=== PATIENT | female | born 1990 | race Caucasian/White ===

== ENCOUNTER → 2023-06-08 09:26 | Outpatient (BNVA) | payer BC, SELFPAY | PROVIDERS: Visit Provider Physician Assistant ==

== ENCOUNTER 2023-06-26 08:12 | Outpatient (AMB) | payer BC, SELFPAY ==
--- NOTE | 2023-06-26 10:35 | MHC.OFFVISWM ---
Intake VS Expanded 06/26/23 10:52 Height 5 ft 3 in Weight 229 lb 4 oz BMI 40.6 Body Fat % 43 Body Fat Mass 98.6 Fat Free Mass 130.8 Visceral Fat Rating 11 Body Water % 40.9 Body Water Mass 93.6 Basal Metabolic Rate/Score 1,842 Intake Visit Reasons: TV [employer] BMI 40.6 Allergies No Known Allergies Allergy (Verified 06/26/23 10:35) Medication List - Last Reconciled 06/26/23 by Andrea Souza MD albuterol sulfate 90 mcg/actuation 2 puffs inhalation Q6H PRN atomoxetine 25 mg PO QAM bupropion HCl 300 mg PO QAM escitalopram oxalate (Lexapro) 20 mg PO DAILY halobetasol propionate 0.05% topical hydrocortisone 2.5% appl topical HPI TV [employer] BMI 40.6 HPI Details Start time: 10.30am, End time: 11.23am ?I spent 48 minutes speaking with the patient on the phone plus an additional 5 minutes reviewing and updating records for a total of 53 minutes HPI Comments History of Present Illness Details Previous weight loss efforts: Keto diet, Weight Watchers, [place] protein, calorie counting, Exercise, RD, My Fitness pal Wakes up: 7am, Sleeps: 9pm Breakfast: skips Lunch: 12pm (apple with peanut butter, leftover, sandwich) Dinner: 6pm (pasta with meat sauce, chicken) Snacks: 10am (cookies, string cheese, granola), 4pm (apple with peanut butter, candy), 8pm (ice cream, popsicles) Exercise: Gym membership. Has treadmill or bike Fluids: Coffee: 1 cup/day (cream and sugar), tea: none, soda:coke zero, juice: at times, ETOH: none PFSH Medical History (Updated 06/26/23 @ 10:45 by Andrea Souza MD) Endometriosis Psoriasis Hyperlipidemia Asthma ADHD GERD (gastroesophageal reflux disease) Anxiety Depression Morbid obesity Surgical History (Updated 06/08/23 @ 09:57 by Katia Joseph CMA) Hx of colonoscopy Hx of wisdom tooth extraction Hx of ovarian cystectomy Family History (Updated 06/08/23 @ 09:58 by Katia Joseph CMA) Mother Obesity Father Hypertension Asthma Daughter No problems noted. Assessment & Plan Assessment & Plan (1) Morbid obesity: Code(s): E66.01 - Morbid (severe) obesity due to excess calories Plan: 1.? Plan for lap sleeve gastrectomy. If diaphragmatic or ventral hernias are present at time of surgery, these will be repaired laparoscopically as well. Risks and complications were discussed in detail including possible conversion to an open procedure, anastomotic leak, bleeding requiring transfusion, small bowel obstruction, , DVT and pulmonary embolism, cardiac, or pulmonary complications, as custodial complications such as anastomotic ulcer, insufficient weight loss and vitamin deficiencies. I emphasized the importance of close follow-up, adherence to instructions and good communication. 2. Nutritional counseling. Start with 2 CELEBRATE REBUILD protein (buy at [facility] [employer] [facility]) shakes (ONE scoop EACH in 8oz low fat unsweetened almond milk each) at 8am-10am and 11am-1pm, 1 protein bar (CELEBRATE protein bars, buy at [facility] [employer] [facility]) at 2pm-4pm, dinner at 5pm (8 forks of protein and 8 forks of salad/vegetables) AND one more protein bar after dinner at 7pm-9pm. So you do 2 protein shakes, 2 protein bars and one meal per day. Meal to include lean meat (beef, fish, pork, turkey, chicken), or japanese yogurt, or egg whites, or beans with a salad with olive oil and fruits (berries, pears, apples, kiwi). Avoid salt, breads, potatoes, rice, pasta, desserts. 3. Each shake would be drunk slowly, like coffee in a period of 2 hours. You may add your coffee into your shakes, if flavors match. 4. Cut each bar in 4 pieces and eat each piece in 30min ?to make each bar last 2 hours. 5. I emphasized the importance of measuring accurately the food portion and measure it when serving the food in plate 6. The meal portions include 8 full-size forks of meat and 8 full-size forks of salad. You always eat the meat portion but you can replace up to 4 forks for salad/vegetables with rice, potatoes or pasta, or a fruit ?if you like. The less you do it the better weight loss will be. 7. One full-size fork is what it can be scooped on the fork without falling aside and not what can be bit with the fork. Use regular forks like those you find in a typical restaurant. 8.? Please send me weight measurements as soon as possible and then once a week. Always include your diet and exercise plan. 9. Start treadmill with an incline of 4.0 and speed of 3.0. Increase incline by 1 every 3 min to a max incline of 10.0, stay 3min at 10.0 and then return to 4.0 and repeat same steps until calorie goal is met. Goal is to burn 2000 calories per week on exercise, which means either 300 calories daily, or 400 calories 5 days per week, or 500 calories 4 days per week, or 650 calories 3 days per week. 10. Alternatively start stationary bike at a resistance level of 4.0 Increase level by 1.0 every 3 min to a max level of 10.0. Stay at this level for 3 min and then return to level 4.0 and repeat same steps until 300 calories are burned. Velocity target is 12mph and heart rate is 145 bpm. Goal is to burn 2000 calories per week on exercise 11.?It is important of avoiding and for at least 18 months postoperatively and has been discussed at the infosession. 12. Goal is to lose at least 1.5-2lbs per week 13. Goal to lose 10% of your weight before surgery, which is about 23lbs. Ultimate weight goal: 206lbs before surgery 14. Please follow the diet plan exactly without any change. If you don't like something about the plan or you feel hungry you need to communicate with me so I can help you revise the plan. You should not change the plan yourself. Orders: Orders Complete Blood Count Auto Diff Today E66.01 - Morbid (severe) obesity due to excess calories, E78.5 - Hyperlipidemia, unspecified, J45.909 - Unspecified asthma, uncomplicated, K21.9 - Gastro-esophageal reflux disease without esophagitis, K50.90 - Crohn's disease, unspecified, without complications, N80.9 - Endometriosis, unspecified Lipid Panel Today E66.01 - Morbid (severe) obesity due to excess calories, E78.5 - Hyperlipidemia, unspecified, J45.909 - Unspecified asthma, uncomplicated, K21.9 - Gastro-esophageal reflux disease without esophagitis, K50.90 - Crohn's disease, unspecified, without complications, N80.9 - Endometriosis, unspecified IRON PROFILE Today E66.01 - Morbid (severe) obesity due to excess calories, E78.5 - Hyperlipidemia, unspecified, J45.909 - Unspecified asthma, uncomplicated, K21.9 - Gastro-esophageal reflux disease without esophagitis, K50.90 - Crohn's disease, unspecified, without complications, N80.9 - Endometriosis, unspecified Vitamin B12 and Folate Today E66.01 - Morbid (severe) obesity due to excess calories, E78.5 - Hyperlipidemia, unspecified, J45.909 - Unspecified asthma, uncomplicated, K21.9 - Gastro-esophageal reflux disease without esophagitis, K50.90 - Crohn's disease, unspecified, without complications, N80.9 - Endometriosis, unspecified Zinc Today E66.01 - Morbid (severe) obesity due to excess calories, E78.5 - Hyperlipidemia, unspecified, J45.909 - Unspecified asthma, uncomplicated, K21.9 - Gastro-esophageal reflux disease without esophagitis, K50.90 - Crohn's disease, unspecified, without complications, N80.9 - Endometriosis, unspecified C Reactive Protein Today E66.01 - Morbid (severe) obesity due to excess calories, E78.5 - Hyperlipidemia, unspecified, J45.909 - Unspecified asthma, uncomplicated, K21.9 - Gastro-esophageal reflux disease without esophagitis, K50.90 - Crohn's disease, unspecified, without complications, N80.9 - Endometriosis, unspecified Vitamin A Today E66.01 - Morbid (severe) obesity due to excess calories, E78.5 - Hyperlipidemia, unspecified, J45.909 - Unspecified asthma, uncomplicated, K21.9 - Gastro-esophageal reflux disease without esophagitis, K50.90 - Crohn's disease, unspecified, without complications, N80.9 - Endometriosis, unspecified Ferritin Today E66.01 - Morbid (severe) obesity due to excess calories, E78.5 - Hyperlipidemia, unspecified, J45.909 - Unspecified asthma, uncomplicated, K21.9 - Gastro-esophageal reflux disease without esophagitis, K50.90 - Crohn's disease, unspecified, without complications, N80.9 - Endometriosis, unspecified Vitamin D 25-OH Total Today E66.01 - Morbid (severe) obesity due to excess calories, E78.5 - Hyperlipidemia, unspecified, J45.909 - Unspecified asthma, uncomplicated, K21.9 - Gastro-esophageal reflux disease without esophagitis, K50.90 - Crohn's disease, unspecified, without complications, N80.9 - Endometriosis, unspecified XR chest 2V Today E66.01 - Morbid (severe) obesity due to excess calories, E78.5 - Hyperlipidemia, unspecified, J45.909 - Unspecified asthma, uncomplicated, K21.9 - Gastro-esophageal reflux disease without esophagitis, K50.90 - Crohn's disease, unspecified, without complications, N80.9 - Endometriosis, unspecified Insulin Today E66.01 - Morbid (severe) obesity due to excess calories, E78.5 - Hyperlipidemia, unspecified, J45.909 - Unspecified asthma, uncomplicated, K21.9 - Gastro-esophageal reflux disease without esophagitis, K50.90 - Crohn's disease, unspecified, without complications, N80.9 - Endometriosis, unspecified Hemoglobin A1c Today E66.01 - Morbid (severe) obesity due to excess calories, E78.5 - Hyperlipidemia, unspecified, J45.909 - Unspecified asthma, uncomplicated, K21.9 - Gastro-esophageal reflux disease without esophagitis, K50.90 - Crohn's disease, unspecified, without complications, N80.9 - Endometriosis, unspecified H Pylori Breath Test Today E66.01 - Morbid (severe) obesity due to excess calories, E78.5 - Hyperlipidemia, unspecified, J45.909 - Unspecified asthma, uncomplicated, K21.9 - Gastro-esophageal reflux disease without esophagitis, K50.90 - Crohn's disease, unspecified, without complications, N80.9 - Endometriosis, unspecified Comprehensive Met. Panel Today E66.01 - Morbid (severe) obesity due to excess calories, E78.5 - Hyperlipidemia, unspecified, J45.909 - Unspecified asthma, uncomplicated, K21.9 - Gastro-esophageal reflux disease without esophagitis, K50.90 - Crohn's disease, unspecified, without complications, N80.9 - Endometriosis, unspecified Vitamin B1 Today E66.01 - Morbid (severe) obesity due to excess calories, E78.5 - Hyperlipidemia, unspecified, J45.909 - Unspecified asthma, uncomplicated, K21.9 - Gastro-esophageal reflux disease without esophagitis, K50.90 - Crohn's disease, unspecified, without complications, N80.9 - Endometriosis, unspecified TSH reflex Free T4 Today E66.01 - Morbid (severe) obesity due to excess calories, E78.5 - Hyperlipidemia, unspecified, J45.909 - Unspecified asthma, uncomplicated, K21.9 - Gastro-esophageal reflux disease without esophagitis, K50.90 - Crohn's disease, unspecified, without complications, N80.9 - Endometriosis, unspecified US abdomen comp w elastography Today E66.01 - Morbid (severe) obesity due to excess calories, E78.5 - Hyperlipidemia, unspecified, J45.909 - Unspecified asthma, uncomplicated, K21.9 - Gastro-esophageal reflux disease without esophagitis, K50.90 - Crohn's disease, unspecified, without complications, N80.9 - Endometriosis, unspecified ECG 12 lead EKG Today E66.01 - Morbid (severe) obesity due to excess calories, E78.5 - Hyperlipidemia, unspecified, J45.909 - Unspecified asthma, uncomplicated, K21.9 - Gastro-esophageal reflux disease without esophagitis, K50.90 - Crohn's disease, unspecified, without complications, N80.9 - Endometriosis, unspecified FL upper GI w air Today E66.01 - Morbid (severe) obesity due to excess calories, E78.5 - Hyperlipidemia, unspecified, J45.909 - Unspecified asthma, uncomplicated, K21.9 - Gastro-esophageal reflux disease without esophagitis, K50.90 - Crohn's disease, unspecified, without complications, N80.9 - Endometriosis, unspecified Referrals Behavioral Health Referral E66.01 - Morbid (severe) obesity due to excess calories, E78.5 - Hyperlipidemia, unspecified, J45.909 - Unspecified asthma, uncomplicated, K21.9 - Gastro-esophageal reflux disease without esophagitis, K50.90 - Crohn's disease, unspecified, without complications, N80.9 - Endometriosis, unspecified Nutrition/Dietitian Referral E66.01 - Morbid (severe) obesity due to excess calories, E78.5 - Hyperlipidemia, unspecified, J45.909 - Unspecified asthma, uncomplicated, K21.9 - Gastro-esophageal reflux disease without esophagitis, K50.90 - Crohn's disease, unspecified, without complications, N80.9 - Endometriosis, unspecified Telehealth Telehealth Location of provider rendering services: practice address Location of patient: address on file Patient Identification confirmed using: Name, : Yes Telehealth method: voice only Patient verbally consented to treatment: Yes Patient verbally consented to billing insurance company: Yes Patient informed of any privacy concerns related to visit: Yes Minutes spent on Phone/Video with Pt.: 53 Coding Level of Care Code Tele New Pt Level 4 (81671) Diagnoses Morbid obesity E66.01 Time Spent (min) 53
[2023-06-26 10:52] VITALS: BMI 40.6
== END 2023-06-26 11:25 | disposition home or self-care (01) ==
LOC: HO.HBS 08:12
PROVIDERS: Visit Provider Surgery
DX: E66.01 Morbid (severe) obesity due to excess calories (principal); Z68.41 Body mass index [BMI] 40.0-44.9, adult
CPT/HCPCS: 99443

== ENCOUNTER → 2023-06-26 08:12 | Outpatient (BNVA) | payer BC, SELFPAY | PROVIDERS: Visit Provider Surgery ==

== ENCOUNTER 2023-06-29 09:53 | Outpatient (REF) | payer BC, SELFPAY ==
--- NOTE | ~2023-06-29 | XR_ITS ---
EXAMINATION: XR CHEST CLINICAL INFORMATION: Reason for Exam E66.01 - Morbid (severe) obesity due to excess calories COMPARISON: None available. TECHNIQUE: 2 views of the chest were obtained. FINDINGS: No significant abnormality is noted involving the heart, lungs, mediastinum, bony thorax or soft tissues. XR/XR chest 2V IMPRESSION: Unremarkable examination.
--- NOTE | 2023-06-29 10:04 | ECG_ITS ---
Test Reason : E66.01 Blood Pressure : / mmHG Vent. Rate : 079 BPM Atrial Rate : 079 BPM P-R Int : 126 ms QRS Dur : 080 ms QT Int : 406 ms P-R-T Axes : 031 023 002 degrees QTc Int : 465 ms Normal sinus rhythm Low voltage QRS Nonspecific T wave abnormality Prolonged QT Abnormal ECG No previous ECGs available Referred By: Andrea Souza Electronically Signed By:ERICH RO
[2023-06-29 10:31] LABS: MANUAL DIFF FLAG NO
[2023-06-29 11:05] LABS: Basophils Percent Auto 0.5 % (0-2); Eosinophils Absolute Auto 0.3 X10*3/uL (0.0-0.4); Eosinophils Percent Auto 3.2 % (0-4); Hematocrit 39.4 % (37.0-47.0); Hemoglobin 13.5 g/dl (12.0-16.0); Imm Gran Abs Auto 0.02 X10*3/uL (0.00-0.03); Imm Gran Pct Auto 0.3 % (0.0-0.4); Lymphocytes Absolute Auto 2.3 X10*3/uL (1.2-4.9); Lymphocytes Percent Auto 28.6 % (20-40); Mean Corpuscular HGB Conc 34.3 g/dl (31.0-35.0); Mean Corpuscular Volume 84.5 fL (80.0-98.0); Mean Platelet Volume 9.1 fL (9.4-12.3); Monocytes Absolute Auto 0.3 X10*3/uL (0.1-1.2); Monocytes Percent Auto 4.2 % (2-11); Neutrophils Percent Auto 63.2 % (45-73); Platelet Count 353 X10*3/uL (160-400); Red Blood Count 4.66 X10*6/uL (4.20-5.50); Red Cell Distribution Width 12.9 % (11.0-16.0); White Blood Count 7.9 X10*3/uL (4.8-10.8)
[2023-06-29 11:11] LABS: Estimated Average Glucose 97 mg/dL
[2023-06-29 11:36] LABS: Alanine Aminotransferase 23 U/L (0-31); Albumin Level 4.1 g/dL (3.5-5.0); Alkaline Phosphatase 68 U/L (39-117); Anion Gap 10 (12-20); Aspartate Amino Transferase 17 U/L (5-31); Bilirubin Total 0.4 mg/dL (0.0-1.0); Blood Urea Nitrogen 12 mg/dL (9-16); Calcium 9.1 mg/dL (8.4-10.2); Carbon Dioxide 25 mmol/L (22-29); Chloride 108 mmol/L (96-108); Cholesterol 145 mg/dL (<200); Estimated Glomerular Filt Rate > 60; Glucose Random 95 mg/dL (60-115); HDL Cholesterol 38 mg/dL (>40); Iron 63 mcg/dL (30-160); LDL Cholesterol Calculated 89 mg/dL (<100); Percent Iron Saturation 21 % (15-50); Potassium 3.9 mmol/L (3.3-5.1); Sodium 139 mmol/L (135-145); Total Iron Binding Capacity 299 mcg/dL (228-428); Total Protein 7.6 g/dL (6.5-8.0); Triglycerides 94 mg/dL (<150); Unsaturated Iron Binding 236 ug/dL
[2023-06-29 11:53] LABS: Ferritin 23 ng/mL (10-122); Insulin 12 uU/mL (2-29); TSH reflex Free T4 0.54 uIU/mL (0.32-4.0); Vitamin D 25-OH Total 26.7 ng/mL (>30)
[2023-06-29 12:13] LABS: Folate 13.2 ng/mL (> or = 4.0); Vitamin B12 595 pg/mL (200-900)
[2023-07-01 16:59] LABS: Zinc 63 mcg/dL (60-130)
[2023-07-02 03:03] LABS: Vitamin A 43 mcg/dL (38-98)
[2023-07-02 16:43] LABS: Vitamin B1 12 nmol/L (8-30)
== END 2023-06-29 09:54 | disposition home or self-care (01) ==
LOC: HO.XRAY 09:53
PROVIDERS: Visit Provider Surgery
DX: E66.01 Morbid (severe) obesity due to excess calories (principal); K21.9 Gastro-esophageal reflux disease without esophagitis; J45.909 Unspecified asthma, uncomplicated; E78.5 Hyperlipidemia, unspecified; K50.90 Crohn's disease, unspecified, without complications; N80.9 Endometriosis, unspecified
CPT/HCPCS: 36415; 71046; 80053; 80061; 82306; 82607; 82728; 82746; 83036; 83525; 83540; 84425; 84443; 84590; 84630; 85025; 86140; 93005

== ENCOUNTER → 2023-06-29 10:04 | Outpatient (BNV) | payer BC, SELFPAY | PROVIDERS: Visit Provider Internal Medicine | DX: I45.81 Long QT syndrome (principal) | CPT/HCPCS: 93010 ==

== ENCOUNTER 2023-07-06 13:14 | Outpatient (AMB) | payer BC, SELFPAY ==
--- NOTE | 2023-07-06 13:01 | A.OFFVIS_ITS ---
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 She has no questions or concerns . Exercise: walking treadmill 5 days per week and following a plan from Dr. Harley MOCTEZUMA online classes: completed , scored well and reviewed. Dietary counseling reduction Who buys your food self and spouse Who prepares/cooks your food self and spouse Meal frequency regular: lunch (something easy - apple w PB), dinner (pasta ) and snacks and never: breakfast Lifestyle Eating out 1-3 times/week Family support Yes Food frequency Fruit: daily, Vegetables: daily, Grains/pasta/breads/cereal (carbs): daily, Meats/poultry/fish (protein): daily, Meat substitutes/nuts/seeds/legumes: daily, Water: daily, Soda: daily (regular coke) and Coffee: daily (cream and sugar ) Diagnosis Nutrition problem #1 overweight/obesity As related to (etiology) #1 excess energy intake and physical inactivity As evidenced by (sign/symptom) #1 high BMI Monitoring/Goals Nutrition problem monitoring total energy intake, level of knowledge/skill, total PRO intake and weight Outcome progress progressing Learning/Education Readiness to learn good Stages of change action Educational materials provided Yes Most Recent Diabetes Results: Cholesterol 145 mg/dL (<200) 06/29/23 HDL Cholesterol 38 mg/dL (>40) L 06/29/23 Triglycerides 94 mg/dL (<150) 06/29/23 Creatinine 0.77 mg/dL (0.5-1.4) 06/29/23 Blood Urea Nitrogen 12 mg/dL (9-16) 06/29/23 Sodium 139 mmol/L (135-145) 06/29/23 Potassium 3.9 mmol/L (3.3-5.1) 06/29/23 Chloride 108 mmol/L (96-108) 06/29/23 Carbon Dioxide 25 mmol/L (22-29) 06/29/23 Calcium 9.1 mg/dL (8.4-10.2) 06/29/23 AST 17 U/L (5-31) 06/29/23 ALT 23 U/L (0-31) 06/29/23 Total Protein 7.6 g/dL (6.5-8.0) 06/29/23 Albumin 4.1 g/dL (3.5-5.0) 06/29/23 PFSH Medical History (Updated 07/03/23 @ 17:00 by nAdrea Souza MD) Endometriosis Psoriasis Hyperlipidemia Asthma ADHD GERD (gastroesophageal reflux disease) Anxiety Depression Morbid obesity Surgical History (Updated 06/08/23 @ 09:57 by Katia Joseph CMA) Hx of colonoscopy Hx of wisdom tooth extraction Hx of ovarian cystectomy Family History (Updated 06/08/23 @ 09:58 by Katia Joseph CMA) Mother Obesity Father Hypertension Asthma Daughter No problems noted. Assessment & Plan Assessment & Plan (1) Obesity (BMI 30-39.9): Code(s): E66.9 - Obesity, unspecified Plan Patient is cleared from a nutrition standpoint for bariatric surgery. Educational requirements have been completed. Reviewed vitamin supplementation and commitment to protein shake for several months post surgery. Encouraged communication with office as needed Telehealth Telehealth Location of provider rendering services: practice address Location of patient: address on file Patient Identification confirmed using: Name, : Yes Telehealth method: video Patient verbally consented to treatment: Yes Patient verbally consented to billing insurance company: Yes Patient informed of any privacy concerns related to visit: Yes Minutes spent on Phone/Video with Pt.: 30 Coding Level of Care Code Nutr Indiv Intake (22734) Diagnoses Obesity (BMI 30-39.9) E66.9 Time Spent (min) 30
[2023-07-06 13:04] VITALS: BMI 38.3
== END 2023-07-06 13:25 | disposition home or self-care (01) ==
LOC: HO.HBS 13:14
PROVIDERS: Visit Provider Dietitian, Registered
DX: E66.9 Obesity, unspecified (principal)

== ENCOUNTER → 2023-07-06 13:14 | Outpatient (BNVA) | payer BC, SELFPAY | PROVIDERS: Visit Provider Dietitian, Registered | DX: E66.9 Obesity, unspecified (principal); Z68.38 Body mass index [BMI] 38.0-38.9, adult; Z71.3 Dietary counseling and surveillance | CPT/HCPCS: 97802 ==

== ENCOUNTER → 2023-07-14 10:29 | Outpatient (REF) | payer BC, SELFPAY ==
--- NOTE | 2023-07-14 10:31 | CA_ITS ---
Acquisition Time: 2023-07-14 10:41:46 Total Exercise Time: 00:07:06 Test Indications: ABNORMAL EKG Medications: Protocol: JACQUI Max HR: 162 BPM 87% of Pred: 186 BPM Max BP: 138/080 mmHG Max Work Load: 8.7 METS Exercise stress test exercise 7 min 6 sec of Jacqui protocol achieving 87% MPHR 8.7 METs, without anginal symptoms, without arrhythmais, with normotensive response to exercise, without EKG changes. Test reviewed with Dr. Morse Referred By: Andrea Souza Overread By: Valeria Contreras
== END ==
LOC: HO.CARD 10:29
PROVIDERS: Visit Provider Surgery
DX: R94.31 Abnormal electrocardiogram [ECG] [EKG] (principal)
CPT/HCPCS: 93017

== ENCOUNTER → 2023-07-14 10:31 | Outpatient (BNV) | payer BC, SELFPAY | PROVIDERS: Visit Provider Nurse Practitioner | DX: R94.31 Abnormal electrocardiogram [ECG] [EKG] (principal) | CPT/HCPCS: 93016; 93018 ==

== ENCOUNTER 2023-07-17 08:56 | Outpatient (REF) | payer BC, SELFPAY ==
--- NOTE | ~2023-07-17 | US_ITS ---
EXAMINATION: US COMPLETE ABDOMEN WITH LIVER ELASTOGRAPHY CLINICAL INFORMATION: Morbid obesity. COMPARISON: None available. TECHNIQUE: Real-time imaging of the abdominal viscera. Noninvasive ultrasound liver fibrosis assessment is performed using Nick ElastPQ point quantification shear wave elastography (2D-SWE) with a C5-2 MHz transducer. Multiple elastography samples are obtained. FINDINGS: PANCREAS: Head and body appear unremarkable. Tail not visualized. ABDOMINAL AORTA: The proximal, middle, and distal aortic segments appear unremarkable in caliber. INFERIOR VENA CAVA: Visualized portions appear unremarkable. LIVER: The liver demonstrates normal size, contour and echogenicity. No focal lesion or intrahepatic biliary duct dilatation. The right lobe measures 17.2 cm in length. The left lobe measures 10.9 cm in length. Portal flow is towards the liver (hepatopetal). Shear wave liver elastography median stiffness is 1.19 m/s (reference: normal median stiffness is 1.3 m/s or less). IQR/median stiffness to assess sampling precision is 0.15 (reference: good quality data set is IQR/median stiffness of 0.15 or less). GALLBLADDER: The gallbladder is physiologically distended without evidence of stones, sludge, polyps, wall thickening or pericholecystic fluid. Technologist reports negative sonographic Cooper's sign. COMMON BILE DUCT: Normal in caliber measuring 0.5 cm in diameter. RIGHT KIDNEY: No hydronephrosis. No renal calculi or focal parenchymal lesion identified. The kidney measures 11.3 cm in maximum dimension. LEFT KIDNEY: No hydronephrosis. No renal calculi or focal parenchymal lesion identified. The kidney measures 12.3 cm in maximum dimension. SPLEEN: The spleen measures 11.3 cm in maximum dimension. FREE FLUID: None. US/US abdomen comp w elastography IMPRESSION: Liver elastography: Measurements are consistent with a high probability of normal liver stiffness. REFERENCE: Society of Radiologists in Ultrasound Liver Stiffness Thresholds (2020): LIVER STIFFNESS THRESHOLDS: *Liver Stiffness equal or less than 1.3 m/s: High probability of being normal. *Liver Stiffness less than 1.7 m/s: In the absence of other known clinical signs, rules out compensated advanced chronic liver disease. *Liver Stiffness 1.7-2.1 m/s: Suggestive of compensated advanced chronic liver disease but need further test for confirmation. *Liver Stiffness over 2.1 m/s: Rules in compensated advanced chronic liver disease. *Liver Stiffness over 2.4 m/s: Suggestive of clinically significant portal hypertension. QUALITY OF DATA SET: *IQR/Median value equal or less than 0.15 implies a quality data set. *IQR/Median value over 0.15 implies a poor quality data set. SIGNIFICANT CHANGE FROM PRIOR EXAM: Significant change if liver stiffness measurement is 10% or greater from prior exam. OTHER CONSIDERATIONS: The stage of liver fibrosis may be overestimated in the setting of acute hepatitis, liver inflammation, elevated liver function tests, hepatic vascular congestion, obstructive cholestasis, non-fasting state, and infiltrative diseases such as amyloidosis and lymphoma. In some patients with NAFLD, the liver stiffness thresholds for compensated advanced chronic liver disease may be lower. In causes other than viral hepatitis and NAFLD, liver stiffness thresholds are not well established.
[2023-07-21 12:42] LABS: H Pylori Breath Test Negative (Negative)
== END 2023-07-17 08:57 | disposition home or self-care (01) ==
LOC: HO.US 08:56
PROVIDERS: Visit Provider Surgery
DX: E66.01 Morbid (severe) obesity due to excess calories (principal); K21.9 Gastro-esophageal reflux disease without esophagitis; J45.909 Unspecified asthma, uncomplicated; E78.5 Hyperlipidemia, unspecified; K50.90 Crohn's disease, unspecified, without complications; N80.9 Endometriosis, unspecified
CPT/HCPCS: 76700; 76981; 83013; 99211

== ENCOUNTER 2023-07-20 08:05 | Outpatient (AMB) | payer BC, SELFPAY ==
--- NOTE | 2023-07-20 10:23 | MHC.OFFVISWM ---
Intake VS Expanded 07/20/23 10:28 Height 5 ft 3 in Weight 208 lb 8 oz BMI 36.9 Body Fat % 46.8 Body Fat Mass 97.7 Fat Free Mass 111.2 Visceral Fat Rating 19 Body Water % 36.5 Body Water Mass 76.2 Basal Metabolic Rate/Score 1,460 Intake Visit Reasons: TV Follow Up SWL - 1ST Allergies No Known Allergies Allergy (Verified 06/26/23 10:35) HPI TV Follow Up SWL - 1ST HPI Details Start time: 10.12am, End time: 10.32am ?I spent 15 minutes speaking with the patient on the phone plus an additional 5 minutes reviewing and updating records for a total of 20 minutes HPI Comments History of Present Illness Details Overall weight loss: 20.6lbs, or 9% TBWL Is doing 2 Celebrate Rebuild protein shakes (1 scoop in almond milk), 2 Celebrate protein bars and one meal (8 forks of protein and 8 forks of salad or vegetables) Exercise: is doing treadmill for 5 days week for 400 calories (speed: 2.2mph, incline 4-10) PFSH Medical History (Updated 07/20/23 @ 10:31 by Andrea Souza MD) Endometriosis Psoriasis Hyperlipidemia Asthma ADHD GERD (gastroesophageal reflux disease) Anxiety Depression Morbid obesity Surgical History (Updated 06/08/23 @ 09:57 by Katia Joseph CMA) Hx of colonoscopy Hx of wisdom tooth extraction Hx of ovarian cystectomy Family History (Updated 06/08/23 @ 09:58 by Katia Joseph CMA) Mother Obesity Father Hypertension Asthma Daughter No problems noted. Assessment & Plan Assessment & Plan (1) Obesity: Code(s): E66.9 - Obesity, unspecified Qualifiers: Obesity type: due to excess calories Obesity classification: adult class 2 (BMI 35 - 39.9) Serious obesity comorbidity presence: with serious comorbidity Body mass index: BMI 36.0-36.9 Qualified Code(s): E66.01 - Morbid (severe) obesity due to excess calories; Z68.36 - Body mass index [BMI] 36.0-36.9, adult Plan: 1. Plan for lap sleeve gastrectomy including upper GI endoscopy. All tests has been completed and reviewed and the patient is cleared for the surgery. ?If diaphragmatic or ventral hernias are present at time of surgery, these will be repaired laparoscopically as well. Risks and complications were discussed in detail including possible conversion to an open procedure, anastomotic leak, bleeding requiring transfusion, small bowel obstruction, , DVT and pulmonary embolism, cardiac, or pulmonary complications, as terminal worker complications such as anastomotic ulcer, insufficient weight loss and vitamin deficiencies. I emphasized the importance of close follow-up, adherence to instructions and good communication. So far she has proven to be an excellent communicator and very compliant with all our directions accomplishing a great weight loss. I believe that she is an excellent candidate and she is ready. 2. Continue same nutritional plan of 2 Celebrate Rebuild protein shakes (1 scoop in almond milk), 2 Celebrate protein bars and one meal (8 forks of protein and 8 forks of salad or vegetables) 3. Exercise: continue treadmill for 5 days week for 440 calories (speed: 2.2mph, increase incline to 6-12) 4. Continue to send me weight measurements weekly on Fridays Telehealth Telehealth Location of provider rendering services: practice address Location of patient: address on file Patient Identification confirmed using: Name, : Yes Telehealth method: voice only Patient verbally consented to treatment: Yes Patient verbally consented to billing insurance company: Yes Patient informed of any privacy concerns related to visit: Yes Minutes spent on Phone/Video with Pt.: 20 Coding Level of Care Code Tele Est Pt Level 3 (10684) Diagnoses Class 2 severe obesity due to excess calories with serious comorbidity and body mass index (BMI) of 36.0 to 36.9 in adult E66.01; Z68.36 Obesity type: due to excess calories Obesity classification: adult class 2 (BMI 35 - 39.9) Serious obesity comorbidity presence: with serious comorbidity Body mass index: BMI 36.0-36.9 Time Spent (min) 20
[2023-07-20 10:28] VITALS: BMI 36.9
== END 2023-07-20 10:33 | disposition home or self-care (01) ==
LOC: HO.HBS 08:06
PROVIDERS: Visit Provider Surgery
DX: E66.09 Other obesity due to excess calories (principal); Z68.36 Body mass index [BMI] 36.0-36.9, adult
CPT/HCPCS: 99442

== ENCOUNTER → 2023-07-20 08:05 | Outpatient (BNVA) | payer BC, SELFPAY | PROVIDERS: Visit Provider Surgery ==

== ENCOUNTER 2023-07-20 14:47 | Outpatient (AMB) | payer BC, SELFPAY ==
--- NOTE | 2023-07-20 13:12 | A.OFFWM_ITS ---
Intake Intake Visit Reasons: VIDEO BH Intake Allergies No Known Allergies Allergy (Verified 06/26/23 10:35) [facility] Medical History (Updated 07/20/23 @ 10:31 by Andrea Souza MD) Endometriosis Psoriasis Hyperlipidemia Asthma ADHD GERD (gastroesophageal reflux disease) Anxiety Depression Morbid obesity Surgical History (Updated 06/08/23 @ 09:57 by Katia Joseph CMA) Hx of colonoscopy Hx of wisdom tooth extraction Hx of ovarian cystectomy Family History (Updated 06/08/23 @ 09:58 by Katia Joseph CMA) Mother Obesity Father Hypertension Asthma Daughter No problems noted. Behavioral Health Assessment Weight Management Therapy Therapy Notes Details Pt is looking to have weight loss surgery to help improve her health and quality of life. She reported seeing a therapist Mindy Coreas for ADHD, anxiety, and depression, and then Anna Rodriguez through [facility] for medication management. She has no history of problems with drugs or alcohol. Pt has no history of inpatient psychiatric admissions, and does have a hx of cutting as a teenager. Presenting Concerns Referral Source provider Reason for referral weight loss surgery evaluation Precipitating Event obesity Living Situation Current Living Situation Own At risk of losing current housing? No Satisfied with current living situation? Yes Comments Pt lives with her and their one year old daughter. Food/Weight/Diet Expectations of change weight loss and maintenance History/Relationship with food Pt stated that there was some emotional eating and eating as a celebration. Also would skip breakfast and would eat a bunch of snacks starting around noon with no actual meals. She reported that she would often eat and was unable to stop eating at least once a week. . she would then be painfully full. History/Relationship with weight Pt stated that she has been overweight since childhood and was often bullied because of it. History/Relationship with dieting Pt has been on numerous different diets and also tried medications. WW, Juicing, Atkins, Keto, Ozempic, has been able to loose 30lbs at most. Binge Eating Do you frequently eat large amounts of food in short periods of time, not feeling physically hungry? Yes Do you feel out of control when you eat a large amount of food in a short period of time? No Do you eat large amounts of food rapidly and typically alone? Yes Night Eating Do you wake up at least once during the night to eat? No If you wake up in the night, do you find that it is necessary to eat something in order to fall back asleep? No Do you have little or no appetite in the morning and feel very hungry in the evening, often overeating between dinner and when you go to bed? Yes Social History Family history and relationship Pt was raised by her parents and is an only child. She grew up in [place]. Parental/Familial caretaker resort obligations 1 year old daughter Developmental history and status no issues Social support partner (), mother, mother in law, father, and friends Legal Involvement and History Current or historical involvement with the legal system? 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 No Interested in further educational program? 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 No Meaningful activities cooking, spending time with her family, working out, hiking. Financial Situation Describe current financial situation Comfortable Financial assistance? None Service Service? No Mental Health and Addiction Treatment Current/Past substance abuse? No Current/Past addictive behavior concerns? No Medical and Physical Health Summary Physical exam in the last year? Yes Pain Screening Current pain? No Pain in the last few months? No Medications Is the patient compliant with medications? Yes Does the patient have Woo Guardian in place? Not applicable Does the patient use complimentary health approaches? No Trauma/Abuse History History of trauma? Yes Questionnaires PHQ-9 Over the last 2 weeks, how often have you been bothered by any of the following problems? 1. Little interest or pleasure in doing things: not at all 2. Feeling down, depressed, or hopeless: several days 3. Trouble falling or staying asleep, or sleeping too much: not at all 4. Feeling tired or having little energy: nearly every day 5. Poor appetite or overeating: several days 6. Feeling bad about yourself - or that you are a failure or have let yourself or your family down: not at all 7. Trouble concentrating on things, such as reading the newspaper or watching television: not at all 8. Moving or speaking so slowly that other people could have noticed. Or the opposite - being so fidgety or restless that you have been moving around a lot more than usual: not at all 9. Thoughts that you would be better off or of hurting yourself in some way: not at all Total score: 5 Source: Developed by Drs. Kishan Kline, Sonja Masterson, Timi Juarez and colleagues, with an educational clifton from [employer]. Binge Eating Scale Group 1 A. I don't feel self-conscious about my wt. or body size when I'm with others. B. I feel concerned about how I look to others, but it normally does not make me fell disappointed with myself C. I do get self-conscious about my appearance and wt. which makes me feel disappointed in myself. D. I feel very self-conscious about my wt. and frequently I feel intense shame and disgust for myself. I try to avoid social contacts because of my self- consciousness. Response Group 1: B Group 2 A. I don't have any difficulty eating slowly in the proper manner. B. Although I seem to gobble down foods, I don't end up feeling stuffed because of eating to much. C. At times, I tend to eat quickly and then, I feel uncomfortably full afterwards. D. I have the habit of bolting down my food, without really chewing it. When this happens I usually feel uncomfortably stuffed because I've eaten to much. Response Group 2: C Group 3 A. I feel capable to control my eating urges when I want to. B. I feel like I have failed to control my eating more than the average person. C. I feel utterly helpless when it comes to feeling in control of my eating urges. D. Because I feel so helpless about controlling my eating I have become very desperate about trying to get control. Response Group 3: A Group 4 A. I don't have the habit of eating when I'm bored. B. I sometimes eat when I'm bored, but often I'm able to get busy and get my mind off food. C. I have a regular habit of eating when I'm bored, but occasionally, I can use some other activity to get my mind off eating. D. I have a strong habit of eating when I'm bored. Nothing seems to help me breath the habit. Response Group 4: B Group 5 A. I'm usually physically hungry when I eat something. B. Occasionally, I eat something on impulse even though I really am not hungry. C. I have the regular habit of eating foods, that I might not really enjoy, to satisfy a hungry feeling even though physically, I don't need the food. D. Although I'm not physically hungry, I get a hungry feeling in my mouth that only seems to be satisfied when I eat a food, like sandwich, that fills my mouth. Sometimes, when I eat the food to satisfy my mouth hunger, I then spit the food out so I won't gain weight. Response Group 5: A Group 6 A. I don't feel any guilt or self-hate after I overeat. B. After I overeat, occasionally I feel guilt or self-hate. C. Almost all the time I experience strong guilt or self-hate after I overeat. Response Group 6: B Group 7 A. I don't lose total control of my eating when dieting even after periods when I overeat. B. Sometimes when I eat a forbidden food on a diet, I feel like I blew it and eat even more. C. Frequently, I have the habit of saying to myself, I've blown it now, why not go all the way, when I overeat on a diet. When that happens I eat more. D. I have a regular habit of starting a strict diets for myself but I break the diets by going on an eating binge. My life seems to be either a feast or famine. Response Group 7: B Group 8 A. I rarely eat so much food that I feel uncomfortably stuffed afterwards. B. Usually about once a month, I each such a quantity of food, I end up feeling very stuffed. C. I have regular periods during the month when I eat large amounts of food, either at mealtime or at snacks. D. I eat so much food that I regularly feel quite uncomfortable after eating and sometimes a bit nauseous. Response Group 8: B Group 9 A. My level of calorie intake does not go up very high or go down very low on a regular basis. B. Sometimes after I overeat, I will try to reduce my caloric intake to almost nothing to compensate for the excess calories I've eaten. C. I have a regular habit of overeating during the night. It seems that my routine is not to be hungry in the morning but overeat in the evening. D. In my adult years, I have had week-long periods where I practically starve myself. This follows periods when I overeat. It seems I live a life of either feast or famine. Response Group 9: C Group 10 A. I usually am able to stop eating when I want to. I know when enough is enough. B. Every so often, I experience a compulsion to eat which I can't seem to control. C. Frequently, I experience strong urges to eat which I seem unable to control, but at other times I can control my eating urges. D. I feel incapable of controlling urges to eat. I have a fear of not being able to stop eating voluntarily. Response Group 10: A Group 11 A. I don't have any problem stopping eating when I feel full. B. I usually can stop eating when I feel full but occasionally overeat leaving me feeling uncomfortably stuffed. C. I have a problem stopping eating once I start and usually I feel uncomfortably stuffed after I eat a meal. D. Because I have a problem not being able to stop eating when I want, I sometimes have to induce vomiting to relieve my stuffed feeling. Response Group 11: B Group 12 A. I seem to eat just as much when I'm with others, Family social gatherings as when I'm by myself. B. Sometimes, when I'm with other persons, I don't eat as much as I want to eat because I'm self-conscious about my eating. C. Frequently, I eat only a small amount of food when others are present, because I'm very embarrassed about my eating. D. I feel so ashamed about overeating that I pick times to overeat when I know no one will see me. I feel like a closet eater. Response Group 12: A Group 13 A. I eat three meals a day with only an occasional between meal snack. B. I eat 3 meals a day, but I also normally snack between meals. C. When I am snacking heavily, I get in the habit of skipping regular meals. D. There are regular periods when I seem to be continually eating, with no planned meals. Response Group 13: B Group 14 A. I don't think much about trying to control unwanted eating urges. B. At least some of the time, I feel my thoughts are pre-occupied with trying to control my eating urges. C. I feel that frequently I spend much time thinking about how much I ate or about trying not to eat anymore. D. It seems to me that most of my waking hours are pre-occupied by thoughts about eating or not eating. I feel like I'm constantly struggling not to eat. Response Group 14: A Group 15 A. I don't think about food a great deal. B. I have strong craving for food but they last only for brief periods of time. C. I have days when I can't seem to think about anything else but food. D. Most of my days seem to be pre-occupied with thoughts about food. I feel like I live to eat. Response Group 15: A Group 16 A. I usually know whether or not I'm physically hungry. I take the right portion of food to satisfy me. B. Occasionally, I feel uncertain about knowing whether or not I'm physically hungry. A these times it's hard to know how much food I should take to satisfy me. C. Even though I might know how many calories I should eat, I don't have any idea what is a normal amount of food for me. Response Group 16: C Binge Eating Score: 13 Score less than 17 Minimal Risk Score between 18-26 Moderate Risk Score between 27-46 High Risk Assessment & Plan Assessment & Plan (1) ADHD: Code(s): F90.9 - Attention-deficit hyperactivity disorder, unspecified type (2) Anxiety: Code(s): F41.9 - Anxiety disorder, unspecified (3) Depression: Code(s): F32.A - Depression, unspecified (4) Morbid obesity: Code(s): E66.01 - Morbid (severe) obesity due to excess calories Plan Patient is doing well in the program. She has numerous professional and social supports. Also in treatment for a few years now with her own mental health providers. She is cleared for surgery. Telehealth Telehealth Location of provider rendering services: practice address Location of patient: address on file Patient Identification confirmed using: Name, : Yes Telehealth method: voice only Patient verbally consented to treatment: Yes Patient verbally consented to billing insurance company: Yes Patient informed of any privacy concerns related to visit: Yes Minutes spent on Phone/Video with Pt.: 40 Coding Level of Care Code Tele Psy Diag Eval (42966) Diagnoses ADHD F90.9 Anxiety F41.9 Depression F32.A Morbid obesity E66.01 Time Spent (min) 45
== END 2023-07-20 15:07 | disposition home or self-care (01) ==
LOC: HO.HBST 14:52
PROVIDERS: Visit Provider Counselor Mental Health
DX: F90.9 Attention-deficit hyperactivity disorder, unspecified type (principal); F41.9 Anxiety disorder, unspecified; F32.A Depression, unspecified; E66.01 Morbid (severe) obesity due to excess calories
CPT/HCPCS: 90791

== ENCOUNTER 2023-07-23 11:03 | Outpatient (REF) | payer BC, SELFPAY ==
--- NOTE | ~2023-07-23 | FL_ITS ---
EXAMINATION: XR FLUOROSCOPY UPPER GI WITH AIR CLINICAL INFORMATION: Preop evaluation prior to bariatric surgery COMPARISON: None TECHNIQUE: Fluoroscopic air contrast upper GI examination was performed utilizing standard techniques with thin and thick barium and effervescent granules. Numerous spot images were obtained. FINDINGS: Lateral cine images of the oropharynx and hypopharynx demonstrate normal swallow mechanism with normal epiglottic inversion and soft palate elevation. No tracheal penetration, glottic or subglottic aspiration identified. No nasopharyngeal reflux present. Hypopharyngeal structures appear normal without evidence of mass or diverticulum. There was no significant cricopharyngeal achalasia. Dual and single contrast images of the esophagus demonstrate normal caliber, contour, and mucosal pattern. No evidence of stricture, mass, or ulcerations identified. Esophageal peristalsis was normal. No evidence of hiatus hernia identified. Gastroesophageal reflux is seen up to the thoracic inlet. Dual contrast and single contrast images of the stomach demonstrated normal contour and mucosal pattern without evidence of mass, ulceration, or other abnormality. Contrast freely passed into the gastric antrum and duodenal bulb without delay. Single and air-contrast images of the duodenal bulb demonstrate no abnormality. The duodenal sweep has a normal appearance, course, and mucosal fold appearance. No malrotation. The imaged proximal jejunum has a normal fold pattern and caliber. FLUOROSCOPY TIME: 3 minutes 41 seconds Number of Spot Images: 12 Number of Cine: 8 DOSE AREA PRODUCT: 3091 uGy-m2 (microgray-meter squared) FL/FL upper GI w air IMPRESSION: Significant gastroesophageal reflux. This procedure was performed by Ariel Kennedy PA-C, and supervised by Dr. Contreras
== END 2023-07-23 11:04 | disposition home or self-care (01) ==
LOC: HO.XRAY 11:03
PROVIDERS: Visit Provider Surgery
DX: E66.01 Morbid (severe) obesity due to excess calories (principal); K21.9 Gastro-esophageal reflux disease without esophagitis; K50.90 Crohn's disease, unspecified, without complications
CPT/HCPCS: 74246

== ENCOUNTER → 2023-07-23 11:03 | Outpatient (BNV) | payer BC, SELFPAY | PROVIDERS: Visit Provider Physician Assistant Surgical | DX: E66.01 Morbid (severe) obesity due to excess calories (principal); Z01.818 Encounter for other preprocedural examination | CPT/HCPCS: 74246 ==

== ENCOUNTER 2023-08-14 07:09 | Outpatient (REF) | payer BC, SELFPAY ==
[2023-08-14 07:35] LABS: MANUAL DIFF FLAG NO
[2023-08-14 07:37] LABS: Basophils Percent Auto 0.3 % (0-2); Eosinophils Absolute Auto 0.9 X10*3/uL (0.0-0.4); Eosinophils Percent Auto 9.5 % (0-4); Hematocrit 39.5 % (37.0-47.0); Hemoglobin 13.4 g/dl (12.0-16.0); Imm Gran Abs Auto 0.02 X10*3/uL (0.00-0.03); Imm Gran Pct Auto 0.2 % (0.0-0.4); Lymphocytes Absolute Auto 2.3 X10*3/uL (1.2-4.9); Lymphocytes Percent Auto 24.2 % (20-40); Mean Corpuscular HGB Conc 33.9 g/dl (31.0-35.0); Mean Corpuscular Hemoglobin 29.5 pg (27.0-33.0); Mean Platelet Volume 8.7 fL (9.4-12.3); Monocytes Absolute Auto 0.4 X10*3/uL (0.1-1.2); Monocytes Percent Auto 4.4 % (2-11); Neutrophils Absolute Auto 5.8 x10*3/uL (2.0-8.3); Neutrophils Percent Auto 61.4 % (45-73); Platelet Count 404 X10*3/uL (160-400); Red Blood Count 4.54 X10*6/uL (4.20-5.50); Red Cell Distribution Width 12.5 % (11.0-16.0); White Blood Count 9.4 X10*3/uL (4.8-10.8)
[2023-08-14 07:43] LABS: INTERNATIONAL NORM RATIO 0.9 (0.9-1.1); Prothrombin Time 11.4 SEC (11.1-13.3)
[2023-08-14 07:54] LABS: Estimated Average Glucose 91 mg/dL; Hemoglobin A1c % 4.8 % (<6.0)
[2023-08-14 08:10] LABS: Alanine Aminotransferase 15 U/L (0-31); Albumin Level 4.1 g/dL (3.5-5.0); Alkaline Phosphatase 93 U/L (39-117); Anion Gap 11 (12-20); Aspartate Amino Transferase 14 U/L (5-31); Bilirubin Total 0.3 mg/dL (0.0-1.0); Blood Urea Nitrogen 17 mg/dL (9-16); C Reactive Protein 0.14 mg/dL (< or = 0.50); Calcium 9.2 mg/dL (8.4-10.2); Carbon Dioxide 24 mmol/L (22-29); Chloride 109 mmol/L (96-108); Cholesterol 187 mg/dL (<200); Estimated Glomerular Filt Rate > 60; Glucose Random 107 mg/dL (60-115); HDL Cholesterol 37 mg/dL (>40); LDL Cholesterol Calculated 121 mg/dL (<100); Sodium 140 mmol/L (135-145); Total Protein 7.6 g/dL (6.5-8.0); Triglycerides 149 mg/dL (<150)
[2023-08-14 08:24] LABS: TSH reflex Free T4 0.42 uIU/mL (0.32-4.0)
[2023-08-14 08:36] LABS: Insulin 42 uU/mL (2-29)
== END 2023-08-14 07:10 | disposition home or self-care (01) ==
LOC: HO.LAB 07:09
PROVIDERS: Visit Provider Surgery
DX: Z01.818 Encounter for other preprocedural examination (principal); E66.01 Morbid (severe) obesity due to excess calories; Z68.36 Body mass index [BMI] 36.0-36.9, adult; K21.9 Gastro-esophageal reflux disease without esophagitis; E78.5 Hyperlipidemia, unspecified; Z79.899 Other long term (current) drug therapy
CPT/HCPCS: 36415; 80053; 80061; 83036; 83525; 84443; 85025; 85610; 85730; 86140; 86850; 86900; 86901

== ENCOUNTER 2023-08-14 11:02 | Outpatient (AMB) | payer BC, SELFPAY ==
[2023-08-14 17:24] VITALS: BMI 36.5
--- NOTE | 2023-08-14 17:24 | A.OFFVIS_ITS ---
Intake VS Expanded 08/14/23 17:24 Height 5 ft 3 in Weight 206 lb 4 oz BMI 36.5 Body Fat % 46.1 Body Fat Mass 95.1 Fat Free Mass 111.2 Visceral Fat Rating 18 Body Water % 37 Body Water Mass 76.3 Basal Metabolic Rate/Score 1,448 Intake Visit Reasons: TV Pre Op LSG 08/20/23 Allergies No Known Allergies Allergy (Verified 08/14/23 17:26) Medication List - Last Reconciled 08/14/23 by Andrea Souza MD albuterol sulfate 90 mcg/actuation 2 puffs inhalation Q6H PRN atomoxetine 25 mg PO QAM bupropion HCl 300 mg PO QAM cholecalciferol (vitamin D3) 125 mcg PO DAILY escitalopram oxalate (Lexapro) 20 mg PO DAILY halobetasol propionate 0.05% topical hydrocortisone 2.5% appl topical HPI TV Pre Op LSG 08/20/23 HPI Details Start time: 4.30pm, End time: 5pm ?I spent 15 minutes speaking with the patient on the phone plus an additional 15 minutes reviewing and updating records for a total of 30 minutes HPI Comments History of Present Illness Details Overall weight lo ss: 24lbs, or 10.4 6% TBWL Is doing 2 Celebrate Rebui ld protein shakes (1 scoop in almond milk), 2 Celebrat e protein bars and one meal (8 forks of protein and 8 forks of salad or vegetables) Exerci se: is doing tread mill for 5 days we ek for 400 calorie s (speed: 2.2mph, incline 4-10) PFSH Medical History (Updated 07/20/23 @ 10:31 by Andrea Souza MD) Endometriosis Psoriasis Hyperlipidemia Asthma ADHD GERD (gastroesophageal reflux disease) Anxiety Depression Morbid obesity Surgical History (Updated 06/08/23 @ 09:57 by Katia Joseph CMA) Hx of colonoscopy Hx of wisdom tooth extraction Hx of ovarian cystectomy Family History (Updated 06/08/23 @ 09:58 by Katia Joseph CMA) Mother Obesity Father Hypertension Asthma Daughter No problems noted. Physical Exam Vital Signs: BMI result Body Mass Index 36.5 Assessment & Plan Assessment & Plan (1) Obesity: Code(s): E66.9 - Obesity, unspecified Qualifiers: Obesity type: due to excess calories Obesity classification: adult class 2 (BMI 35 - 39.9) Serious obesity comorbidity presence: with serious comorbidity Body mass index: BMI 36.0-36.9 Qualified Code(s): E66.01 - Morbid (severe) obesity due to excess calories; Z68.36 - Body mass index [BMI] 36.0- 36.9, adult Plan: 1. Plan for lap sleeve gastrectomy including upper GI endoscopy. All tests has been completed and reviewed and the patient is cleared for the surgery. ?If d iaphragmatic or ventral hernias are present at time of surgery, these will be repaired laparoscopically as well. Risks and complications were discussed in detail including possible conversion to an open procedure, anastomotic leak, bleeding requiring transfusion, small bowel obstruction, , DVT and pulmonary embolism, cardiac, or pulmonary complications, as correction complications such as anastomotic ulcer, insufficient weight loss and vitamin deficiencies. I emphasized the importance of close follow-up, adherence to instructions and good communication. So far she has proven to be an excellent communicator and very compliant with all our directions accomplishing a great weight loss. I believe that she is an excellent candidate and she is ready. 2. Preop prescriptions were provided and explained the purpose of each one. Need to be purchased preop. Start Pantoprazole now as you get it from the pharmacy, 1 pill per day. Sucralfate and Zofran are for after surgery as needed. 3. Bowel prep: please do 7 packets ?of Miralax mixing each one with a an 8oz glass of water, crystal light, gatorade zero, or propel ?on 08/18/23 and the same amount on 08/19/23. The Miralax you begin with one packet at a time in 8oz water or crystal light, gatorade zero, or propel ?as early in the day as you can and you do them back to back until you finish them. Continue the protein shakes during? the bowel prep. 4. Needs to purchase 1oz medicine cups . 5. Needs to purchase Children's liquid Tylenol for postop pain control. 6. Avoid aspirin, motrin, Advil, Aleve, Ibuprofen, Naproxyn. Tylenol is OK. 7. She needs to purchase the Celebrate 4:1 protein shakes from the hospital's gift shop. 8. Importance of adherence to postop folllow-up and recommendations was underscored and she understands that. 9. Stop food and bars as of tomorrow and continue with 3 Celebrate REBUILD protein shakes (ONE scoop EACH in 8oz almond milk) at 8am-10am, 11am-1pm and 2pm-4pm and two more Celebrate REBUILD protein shakes with TWO scoops EACH in 8oz of almond milk at 5pm-7pm and 7pm-9pm 10. No soups, broths or V8 11. The patient's?medical?history has been reviewed and they are considered low risk for post op DVT and therefore DVT prophylaxis is not considered necessary. Travel after surgery was reviewed. The patient has not disclosed any travel plans during the first 30 days after surgery and they have been advised that within the first 30 days after surgery any bus, plane, train or car travel over 2 hours in duration is contraindicated due to the possibility of developing blood clots from immobility. Any travel, needs to include periods of ambulation of 10 minutes in duration every 2 hours.? Patient was instructed to discuss any plans for travel during this period with their bariatric surgeon.? 12. Please take at the day of surgery the following medications: NONE 13. Stop any control pills and don't use them for one month after surgery 14. Absolutely no smoking or vaping, or marijuana until the surgery and for at least the first 4 weeks. Only nicotine patches are allowed. 15. Send me weight measurements tomorrow on 08/15/23 and then on 08/20/23 the day of surgery before you go to the hospital. 16. Avoid any steroids by mouth for any reason. Let me know if someone prescribes them to you 17. These instructions supersede anything else you read in the handbook, anything you watched in videos or classes or you were told by any other provider. If there is any conflict, you follow the above instructions and nothing else. Telehealth Telehealth Location of provider rendering services: practice address Location of patient: address on file Patient Identification confirmed using: Name, : Yes Telehealth method: voice only Patient verbally consented to treatment: Yes Patient verbally consented to billing insurance company: Yes Patient informed of any privacy concerns related to visit: Yes Minutes spent on Phone/Video with Pt.: 30 Coding Level of Care Code Tele Est Pt Level 4 (47856) Diagnoses Class 2 severe obesity due to excess calories with serious comorbidity and body mass index (BMI) of 36.0 to 36.9 in adult E66.01; Z68.36 Obesity type: due to excess calories Obesity classification: adult class 2 (BMI 35 - 39.9) Serious obesity comorbidity presence: with serious comorbidity Body mass index: BMI 36.0-36.9 Time Spent (min) 30
== END 2023-08-14 17:39 | disposition home or self-care (01) ==
LOC: HO.HBS 11:02
PROVIDERS: Visit Provider Surgery
DX: E66.01 Morbid (severe) obesity due to excess calories (principal); Z68.36 Body mass index [BMI] 36.0-36.9, adult
CPT/HCPCS: 99024

== ENCOUNTER 2023-08-20 07:06 | Inpatient (IN) | payer BC, SELFPAY ==
[2023-08-18 11:17] VITALS: BMI 36.5
--- NOTE | 2023-08-19 09:35 | P.CONAN_ITS ---
Documented by User: Huong Espinal NP 08/19/23 09:37 HPI - Anesthesia Eval Consult details Narrative: 33yo F for Gastrectomy Sleeve-EGD, possible diaphragmatic hernia, possible ventral hernia, possible open PMFSH Active Problems Active Problems: All Active Problems (Updated 08/18/23 @ 11:03 by Ibis Yost RN) Nausea (Acute) Obesity (Acute) Abnormal EKG (Acute) Vitamin D deficiency (Acute) Crohn's disease in remission (Acute) Endometriosis (Acute) Psoriasis (Acute) Hyperlipidemia (Acute) Asthma (Acute) ADHD (Acute) GERD (gastroesophageal reflux disease) (Acute) Anxiety (Acute) Depression (Acute) Morbid obesity (Acute) Past Medical History Medical History Back pain Crohn's disease in remission Fatty liver Kidney stone Endometriosis Psoriasis Hyperlipidemia Asthma ADHD GERD (gastroesophageal reflux disease) Anxiety Depression Morbid obesity Family History Family History Mother Obesity Father Hypertension Asthma Daughter No problems noted. Surgical History Surgical History History of carpal tunnel repair Hx of colonoscopy Hx of wisdom tooth extraction Hx of ovarian cystectomy Social History Social History Are you a primary personal care service provider to a significant other at home: No Do you presently have visiting nurse or other home services: No Patient Tobacco Use Status: Never used Tobacco Have you been hit, kicked, punched, or otherwise hurt by someone within the past year? If so, by whom?: No Advance Directives: No Advance Directives Information Provided: No Advance Directives on File: No Recently lost weight without trying: No Eating poorly because of decreased appetite: No Nutrition Risks: No Nutritional Risk Patient : No : No Poor oral hygiene: Yes (1 lower crown on the left molar) Meds Allergies Allergy/AdvReac Type Severity Reaction Status Date / Time No Known Allergies Allergy Verified 08/20/23 07:21 Home Medications Medication Instructions Recorded Confirmed Last Taken Type atomoxetine 25 mg capsule 25 mg PO DAILY 06/08/23 08/20/23 08/19/23 History escitalopram oxalate 20 mg tablet 20 mg PO DAILY 06/08/23 08/20/23 08/19/23 History (Lexapro) halobetasol propionate 0.05 % 1 appl topical BID PRN Skin 06/08/23 08/18/23 Unknown History topical ointment Irritation hydrocortisone 2.5 % topical cream 1 appl topical BID PRN Skin 06/08/23 08/18/23 Unknown History Irritation albuterol sulfate 90 mcg/actuation 2 puff inhalation Q6H PRN 06/26/23 08/18/23 Unknown History aerosol inhaler Shortness Of Breath Or Wheezing bupropion HCl 150 mg 24 hr tablet, 300 mg PO DAILY 06/26/23 08/20/23 08/19/23 History extended release cetirizine 10 mg tablet (Zyrtec) 10 mg PO DAILY PRN Allergy Symptoms 08/18/23 08/18/23 Unknown History cyclobenzaprine 10 mg tablet 10 mg PO TID PRN Muscle Spasm 08/18/23 08/18/23 Unknown History Exam Height,Weight and Vital Signs: Height 5 ft 3 in Weight 93.44 kg Pertinent Lab Results Pertinent Lab Results: Laboratory Tests 08/14/23 07:22 Blood Type O Positive Antibody Screen NEGATIVE Laboratory Tests 08/14/23 07:29 WBC 9.4 Hgb 13.4 Hct 39.5 Plt Count 404 H Sodium 140 Potassium 4.0 Chloride 109 H Carbon Dioxide 24 BUN 17 H Creatinine 0.77 Narrative Narrative: EKG 06/2023 Vent. Rate : 079 BPM Atrial Rate : 079 BPM P-R Int : 126 ms QRS Dur : 080 ms QT Int : 406 ms P-R-T Axes : 031 023 002 degrees QTc Int : 465 ms Normal sinus rhythm Low voltage QRS Nonspecific T wave abnormality Prolonged QT Abnormal ECG No previous ECGs available Exercise Stress 06/2023 Protocol: ALEXYS Max HR: 162 BPM 87% of Pred: 186 BPM Max BP: 138/080 mmHG Max Work Load: 8.7 METS Exercise stress test exercise 7 min 6 sec of Alexys protocol achieving 87% MPHR 8.7 METs, without anginal symptoms, without arrhythmais, with normotensive response to exercise, without EKG changes. Test reviewed with Dr. Morse Assessment and Plan Assessment Anesthesia Assessment: Chart Reviewed Documented by User: Felicia Moore MD 08/20/23 09:31 [facility] Active Problems Active Problems: All Active Problems (Updated 08/20/23 @ 09:20 by Felicia Moore MD) Nausea (Acute) Abnormal EKG (Acute) Vitamin D deficiency (Acute) Crohn's disease in remission (Acute) Endometriosis (Acute) Psoriasis (Acute) Hyperlipidemia (Acute) Asthma (Acute)- inhaler prn ADHD (Acute) GERD (gastroesophageal reflux disease) (Acute) Anxiety (Acute) Depression (Acute) Morbid obesity (Acute)- BMI 36.5 Past Medical History Medical History Back pain Crohn's disease in remission Fatty liver Kidney stone Endometriosis Psoriasis Hyperlipidemia Asthma ADHD GERD (gastroesophageal reflux disease) Anxiety Depression Morbid obesity Family History Family History Mother Obesity Father Hypertension Asthma Daughter No problems noted. Family history of problems with anesthesia: No Surgical History Surgical History History of carpal tunnel repair Hx of colonoscopy Hx of wisdom tooth extraction Hx of ovarian cystectomy History of Problems with Anesthesia: No Social History Social History Are you a primary personal care service provider to a significant other at home: No Do you presently have visiting nurse or other home services: No Patient Tobacco Use Status: Never used Tobacco Have you been hit, kicked, punched, or otherwise hurt by someone within the past year? If so, by whom?: No Advance Directives: No Advance Directives Information Provided: No Advance Directives on File: No Recently lost weight without trying: No Eating poorly because of decreased appetite: No Nutrition Risks: No Nutritional Risk Patient : No : No Poor oral hygiene: Yes (1 lower crown on the left molar) Meds Allergies Allergy/AdvReac Type Severity Reaction Status Date / Time No Known Allergies Allergy Verified 08/20/23 07:21 Home Medications Medication Instructions Recorded Confirmed Last Taken Type atomoxetine 25 mg capsule 25 mg PO DAILY 06/08/23 08/20/23 08/19/23 History escitalopram oxalate 20 mg tablet 20 mg PO DAILY 06/08/23 08/20/23 08/19/23 History (Lexapro) halobetasol propionate 0.05 % 1 appl topical BID PRN Skin 06/08/23 08/18/23 Unknown History topical ointment Irritation hydrocortisone 2.5 % topical cream 1 appl topical BID PRN Skin 06/08/23 08/18/23 Unknown History Irritation albuterol sulfate 90 mcg/actuation 2 puff inhalation Q6H PRN 06/26/23 08/18/23 Unknown History aerosol inhaler Shortness Of Breath Or Wheezing bupropion HCl 150 mg 24 hr tablet, 300 mg PO DAILY 06/26/23 08/20/23 08/19/23 History extended release cetirizine 10 mg tablet (Zyrtec) 10 mg PO DAILY PRN Allergy Symptoms 08/18/23 08/18/23 Unknown History cyclobenzaprine 10 mg tablet 10 mg PO TID PRN Muscle Spasm 08/18/23 08/18/23 Unknown History Exam Height,Weight and Vital Signs: Height 5 ft 3 in Weight 93.44 kg Vital Signs Temp Pulse Resp BP Pulse Ox O2 Del Method 08/20/23 08:17 97.0 F 77 16 108/69 98 Room Air Pertinent Lab Results Pertinent Lab Results: Laboratory Tests 08/14/23 07:22 Blood Type O Positive Antibody Screen NEGATIVE Laboratory Tests 08/14/23 07:29 WBC 9.4 Hgb 13.4 Hct 39.5 Plt Count 404 H Sodium 140 Potassium 4.0 Chloride 109 H Carbon Dioxide 24 BUN 17 H Creatinine 0.77 Laboratory Results - last 24 hr 08/20/23 06:55 Urine Test NEGATIVE Airway Mallampati Class: II TM Dist: >3cm Neck ROM: Full Loose/Missing/Broken Teeth: No ([place] intact. Denies broken, loose, missing teeth) Heart: RRR Lungs: CTAB Assessment and Plan Assessment Anesthesia Assessment: Anesthesia Plan Discussed and Chart Reviewed Final Anesthetic Review Family History of Problems with Anesthesia: No History of Problems with Anesthesia: No NPO: Yes ASA Class: III Final Preanesthetic Review: No Changes in Pt Med Stat, Meds/Allgs Chart Reviewed, Consent Obtained/Reviewed and Anes Risks/Benef Reviewed Patient Risk: Intermediate Procedure Risk: Intermediate Assessment/Block/Sedation in SS: Assess/Block/Sedation-SS Anesthetic Plan Anesthetic Plan: GA Disposition: Standard PACU and Inp. Admit - Standard Bed
[2023-08-20] VITALS (16 sets, daily range): BP systolic 108–156; BP diastolic 62–87; PULSE 70–88; RESP 16–18; TEMP 36.1–37.1; O2SAT 94–100; BMI 35.8
[2023-08-20 07:25] LABS: UPreg QC Valid YES; Urine Pregnancy NEGATIVE (NEGATIVE)
--- NOTE | 2023-08-20 07:57 | P.BOP_ITS ---
Brief Operative Note Date of Service: 08/20/23 Pre-op diagnosis: Severe obesity with comorbidities (see below) Post-op diagnosis: same Procedure: INITIAL PATIENT BMI ON PRESENTATION AT OUR OFFICE: 40.6 kg/m2 LAST BMI BEFORE SURGERY: 36.2 kg/m2 COMORBIDITIES: depression, anxiety, GERD, asthma, hyperlipidemia, psoriasis ?The patient presented to the Weight Management Program with significant obesity that was negatively impacting the patient's comorbidities as listed above.? The program is a phased program with a special focus on preoperative medical weight management to promote substantial weight loss and prepare the patients for the second phase of the program: bariatric surgery. The patient participated in an intensive weekly lifestyle ?intervention and exercise program during which the patient ?has lost between the initial office visit and the last preoperative visit 25lbs, or 10.9% of initial actual body weight. It was deemed appropriate for the patient to now have bariatric surgery. In light of the current Covid-19 pandemic and the well documented strong association of obesity and increased risk of worse outcomes if infected with Covid-19 (REFERENCES: https://pubmed.ncbi.nlm.nih.gov/87060247/ ,? https://pubmed.ncbi.nlm.nih.gov/21431597/ ), any delay in undergoing bariatric surgery may lead to the patient's worsening health condition and increased?risk of more severe Covid-19 disease if infected. In addition a recent?study from [facility] published in [facility] on 05/20/2021 ([email or web address]) found that, among patients with obesity, substantial weight loss achieved with surgery was associated with improved outcomes of COVID-19 infection. The findings suggest that obesity can be a modifiable risk factor for the severity of COVID-19 infection. In addition, the patient met the BMI-criteria for bariatric surgery based on the BMI on initial presentation. The patient should not be penalized for achieving such weight loss because ?it is not sustainable long-term without surgical intervention and it was achieved in preparation for bariatric surgery ?under my direction and based on my published research ([email or web address]).[email or web address] and? https://www.soard.org/article/[email or web address](64)37860-X/pdf ) ?that a 10% preoperative weight loss improves long-term weight loss after surgery and reduces perioperative complications.? Insurance carriers such as [facility] have endorsed my recommendations ?and have included in their policies criteria to include a 10% preoperative weight loss requirement. PROCEDURE: Esophago-gastroscopy, laparoscopic sleeve gastrectomy and laparoscopic gastropexy INDICATIONS: This is a 33 year-old female who was electively scheduled for laparoscopic, possibly open sleeve gastrectomy. The risks and complications of the procedure were discussed with the patient in advance, particularly the possibility of ; pulmonary embolism; staple line leak; bleeding; GERD; cardiac, pulmonary, or renal complications; as well as long-term problems such as insufficient weight loss, vitamin deficiency, strictures, or ulcers. The patient understood all the risks, and was in agreement to proceed with surgery. DESCRIPTION OF PROCEDURE: After informed consent was obtained from the patient, the patient was given preo perative antibiotics, and was transferred to the operating room. After successful induction of general anesthesia, pneumatic compression devices were placed on both lower extremities. An upper endoscopy was performed next. The oropharynx and esophagus appeared to be within normal limits. There was no diaphragmatic hernia present consistent with the findings of the preoperative upper GI. The stomach was entered. Then after all fluid and air were suctioned and the stomach was fully decompressed, the scope was withdrawn and secured in the mid esophagus. The patient was then prepped and draped in the usual sterile manner, and abdominal access was established at the right upper quadrant with the Nahomy technique. A 12 mm blunt port was inserted, and the abdomen was insufflated with CO2 to a pressure of 15 mmHg. Under direct visualization, additional ports were placed, specifically two 5 mm Versi-step ports to the left upper quadrant, and a 5 mm Versi-Step port to the right upper quadrant. 1% lidocaine plain was used to infiltrate all port sites as well as all fascia defects. Following that, the patient was placed in a steep reverse Trendelenburg position. An additional 5 mm port was placed to the right flank for the Mediflex retractor that was used to retract the left lobe of the liver. The gastro-esophageal fat pad was opened with the ultrasonic device (Thunderbeat, Olympus) and the anterior esophagus and hiatus were exposed. The angle of His was opened with the ultrasonic device the fundus of the stomach from any diaphragmatic and splenic attachments. I then opened the gastrocolic ligament between the transverse colon and the greater curvature of the stomach with the ultrasonic device to enter the lesser sac and facilitate the ligation of the short gastric vessels. I started at a mid-point along the greater curvature and using the Thunderbeat, all short gastric vessels were divided all the way to the angle of His until the left jerri was completely dissected at its entirety. I then divided the gastro-colic ligament distally to a distance of about 3-4 cm proximal to the pylorus. The stomach was then divided transversely with one Endo ESTEPHANIA-45 purple and four ESTEPHANIA-60 articulating purple loads using the [employer] stapler and loads. Every effort was made that the gastric sleeve had a tubular shape and an even caliber throughout. Once the sleeve resection was completed, the staple line of the gastric sleeve was reinforced with Hemoclips. The resected stomach was retrieved without difficulty from the Nahomy port. A gastropexy was then performed in order to prevent postoperative GERD and partial gastric volvulus. Several interrupted 2.0 Surgidac sutures were placed between the sleeve's staple line and the previously divided greater omentum and gastro-colic ligament using the Endo-Stitch device. ?An upper endoscopy was performed. There was no narrowing at the GE junction. The scope was easily advanced all the way to the pylorus which was clearly visualized. There was no narrowing anywhere and the sleeve's caliber was even throughout. The sleeve's staple line was inspected and there was no evidence of ischemia, bleeding or dehiscence. At that point the gastroscope was withdrawn from the patient?s mouth while we were decompressing the bowel and the stomach from any remaining air. I looked into the lesser sac to see how the sleeve was situating and it was situating well. There was no bleeding from the staple line, spleen, or short gastric vessels. The Mediflex retractor was removed, and the undersurface of the liver was inspected and there was no bleeding. The patient was placed in supine position. I closed the fascial defect of the 12 mm port site with a figure of eight #1 Polysorb suture. Then 30cc Ropivacaine plain with 10 mg of Dexamethasone were used to infiltrate the fascial closure as well as all skin incisions. At this point, the abdomen was deflated, all ports were removed under direct vision, and no bleeding was noted from any of the port sites. The skin incisions were irrigated with saline and were closed with 4-0 absorbable monofilament sutures. Steri-Strips and OpSites were used to cover all incisions. The patient was extubated and was transferred in stable condition to the recovery room for further care. I was present and performed all willett parts of the procedure. Mr. Pérez was the project construction assistant manager. There were no residents to assist with this case. Lloyd Souza MD, PhD, FACS Surgeon: Andrea Souza MD Anesthesia: GETA, local and other (TAP block) Was an Gray Mixing Operator used for this Procedure?: No Gray Mixing Operator: Jose Miguel Pérez Estimated blood loss (mL): 10 IV fluids (mL): 2,000 Urine output (mL): 0 (No [place] to record output) Pathology: other (Stomach) Condition: stable Disposition: PACU
--- NOTE | 2023-08-20 07:57 | MHC.SHP ---
Pre-Procedural Eval Section A - 24 Hr Update-Section A only Date of Service: 08/20/23 The patient is an INPATIENT: Yes The patient has been examined within 24 hours of the surgical procedure. The History & Physical has been completed within 30 days and I have reviewed it.: Yes Section B - Complete if H&P > 30 days Chief Complaint: Obesity Relevant Family History (Specify if Yes): No Relevant Social History: None Present Medications: None Medical History: No relevant PMH History of Previous Operations: No relevant previous surgery Allergies: Allergies Allergy/AdvReac Type Severity Reaction Status Date / Time No Known Allergies Allergy Verified 08/20/23 07:21 Review of Systems Sugical H&P ROS: Negative: Constitution, Cardiovascular, Respiratory, Neurological, Psychiatric, Hem-Onc, Allergic/Immunologic, Gastrointestinal, Genitourinary, Musculoskeletal, Integumentary, Endocrine and Eyes/Ears/Nose/Throat Exam Surgical H&P Exam: Normal: HEENT, Normal: Heart, Normal: Lungs, Normal: Extremities, Normal: Abdomen, Normal: Skin and Normal: Neurological Plan Diagnosis/Plan: Unchanged I have reviewed the history and physical and performed a pertinent physical examination on my patient. No changes have occurred unless specified. Time Spent With Patient Time: Total time managing care of this patient today ____ minutes.
--- NOTE | 2023-08-20 08:00 | P.PNGS_ITS ---
Subjective Subjective Date of Service: 08/21/23 Interval history: Feels well. Mild incisional pain. She is tolerating phase 1 bariatric diet Physical Exam 2 Vital Signs: Vital Signs: BMI result Body Mass Index 36.5 GI: Inspection: Yes normal to inspection, Yes incision (clean, dry and intact) and Yes obesity Palpation (GI): Soft to palpation Extrem: Right lower extremity: normal to inspection (no calf tenderness) L eft lower extremity: normal to inspection (no calf tenderness) Objective Data Active Medications Albuterol Sulfate (Albuterol Sulfate (0.083%) 2.5 Mg/3 Ml Vial.Neb) 2.5 mg INHALE ONCE PRN PRN Reason: Shortness of Breath/Wheezing Lactated Ringer's (Lr) 1,000 mls @ 100 mls/hr IVCONT .Q10H CECILIA Lactated Ringer's (Lr) 1,000 mls @ 999 mls/hr IV .Q1H1M CECILIA Stop: 08/20/23 09:15 Labs 08/21/23 05:39 08/21/23 05:39 Labs: Laboratory Results - last 24 hr 08/20/23 06:55 Urine Test NEGATIVE Procedures Date of Service Date of Service: 08/21/23 Progress Note: A&P Assessment and plan (1) Obesity: Status: Acute Assessment and Plan: s/p laparoscopic sleeve gastrectomy and gastropexy Doing well Will check am labs and if OK the patient will be discharged home (2) ADHD: Status: Acute (3) GERD (gastroesophageal reflux disease): Status: Acute (4) Anxiety: Status: Acute (5) Depression: Status: Acute (6) Hyperlipidemia: Status: Acute (7) Asthma: Status: Acute (8) Psoriasis: Status: Acute (9) S/P laparoscopic sleeve gastrectomy: Status: Acute Time Spent With Patient Time: Total time managing care of this patient today ____ minutes. Quality Stroke Does the patient have a stroke diagnosis?: No VTE Prior VTE?: No VTE Risk Level:: Surgical - moderate VTE Device Contraindication: N/A - Device Ordered VTE Drug Contraindication: Treatment Not Indicated
[2023-08-20] MEDS: Lactated Ringers 1,000 ML 999 ML IV (08:22)
[2023-08-20] MEDS: Lactated Ringers 1,000 ML 100 ML IVCONT ×3 (08:23→23:17)
[2023-08-20] MEDS: Aprepitant 32 MG/4.4 ML VIAL IVPUSH (08:24)
--- NOTE | 2023-08-20 12:35 | P.DS_ITS ---
DS: Providers Provider Date of Service: 08/21/23 Date of admission: 08/20/23 07:06 Primary care physician: Unknown Physician DS: Diagnosis Discharge Diagnosis (1) Obesity: Status: Acute (2) ADHD: Status: Acute (3) GERD (gastroesophageal reflux disease): Status: Acute (4) Anxiety: Status: Acute (5) Depression: Status: Acute (6) Hyperlipidemia: Status: Acute (7) Asthma: Status: Acute (8) Psoriasis: Status: Acute (9) S/P laparoscopic sleeve gastrectomy: Status: Acute DS: Summary Hospital Course Hospital Course: ADMITTING DIAGNOSIS: obesity, HLD, asthma, gerd, anxiety, depression ? DISCHARGE DIAGNOSIS: same, s/p laparoscopic sleeve gastrectomy ? PAST SURGICAL HISTORY: carpal tunnel surgery, ovarian cystectomy ? PROCEDURE: upper endoscopy, laparoscopic sleeve gastrectomy ? DISCHARGE SUMMARY: ? History of Present Illness: ? The patient is a?33 year-old woman with a BMI of?40.6 kg/m2 and associated co-mo rbidities as described above. The patient had extensive work-up,lost?24 lbs preoperatively and was electively scheduled for laparoscopic, possible open sleeve gastrectomy and gastropexy. Risks and complications of the surgery were discussed with the patient in advance, particularly the possibility of , pulmonary embolism, anastomotic leak, bleeding, bowel injury, GERD, cardiac, renal or pulmonary complications. The patient understood all the risks and was in agreement with the surgical plan. ? Hospital Course: ? The patient underwent an uneventful laparoscopic sleeve gastrectomy with gastropexy on the day of admission. Postoperatively, the patient was transferred to the surgical floor. The patient received IV Acetaminophen and IV dilaudid for pain control. Patient was started on bariatric phase 1 diet POD #0. On postoperative day one, the patient was feeling well without nausea, vomiting, fevers, or tachycardia. The patient had some mild incisional pain and the abdomen was soft. ? On the morning of postoperative day one, the patient was continued on 1 ounce of water or ice every half hour. During the day, the patient did fairly well, having some incisional pain, but able to ambulate adequately and to tolerate liquids well. ? Since the patient is doing well, we decided that the patient was ready to be discharged. The patient was given instructions to follow-up with me next week and to call my office for any fever over 101, persistent abdominal pain, nausea, vomiting, GERD, symptoms of DVT such as calf tenderness, or leg swelling, or pulmonary embolism such as chest pain or shortness of breath. The patient was also instructed to drink 40-60 ounces of liquids per day using the 1-ounce cups. The patient had been given prescriptions for Tylenol for pain, Zofran prn for nausea, and pantoprazole and carafate previously. The patient was encouraged to ambulate and use the incentive spirometer. The patient was allowed to shower, but no baths, and encouraged to stay active at home. All of these instructions were given to the patient personally. All questions were answered and the patient understood all instructions, the instructions were also given to the patient in print. Time Attestation Discharge Coordination Time (in mins): 25 Quality: Safe Use of Opioids Does Pt have an Active Cancer Diagnosis on the Problem List?: No Quality: Stroke Does the patient have a stroke diagnosis?: No Physical Exam Vital Signs: Vital Signs: Last Vital Signs Temp 98.8 F 08/20/23 12:21 Pulse 85 08/20/23 12:31 Resp 18 08/20/23 12:31 BP 117/72 08/20/23 12:31 Pulse Ox 100 08/20/23 12:31 O2 Del Method Simple Mask 08/20/23 12:21 O2 Flow Rate 4 08/20/23 12:21 BMI result Body Mass Index 35.8 DS: Data Data Completed and Pending Pending studies at discharge: Pending at discharge 08/20/23 11:24 Surgical [PTH] Routine 08/20/23 11:48 Surgical [PTH] Routine Labs on day of discharge: Laboratory Results - last 24 hr 08/20/23 06:55 Urine Test NEGATIVE Discharge Plan Discharge Anticipated Discharge Date/Time: 08/21/23 10:00 Patient Disposition: Home, Self-Care Discharge Diagnosis: s/p laparoscopic sleeve gastrectomy Referrals: Physician,Unknown J [Primary Care Provider] - 1 Week Discharge Medications: Continued cetirizine [Zyrtec] 10 mg Tablet 10 mg PO DAILY PRN (Reason: Allergy Symptoms) atomoxetine 25 mg capsule 25 mg PO DAILY escitalopram oxalate [Lexapro] 20 mg tablet 20 mg PO DAILY hydrocortisone 2.5 % cream 1 appl topical BID PRN (Reason: Skin Irritation) halobetasol propionate 0.05 % ointment 1 appl topical BID PRN (Reason: Skin Irritation) bupropion HCl 150 mg tablet extended release 24 hr 300 mg PO DAILY albuterol sulfate 90 mcg/actuation HFA aerosol inhaler 2 puff inhalation Q6H PRN (Reason: Shortness Of Breath Or Wheezing) pantoprazole 40 mg tablet,delayed release (DR/EC) 40 mg PO DAILY Qty: 90 0RF sucralfate 100 mg/mL suspension 10 ml PO BID Qty: 600 2RF ondansetron 4 mg tablet,disintegrating 4 mg PO Q12H Qty: 20 0RF Rx Instructions: Only take one every 12 hours as needed if you have nausea Held cyclobenzaprine 10 mg tablet 10 mg PO TID PRN (Reason: Muscle Spasm) Hold Instructions: Resume on 09/04/23. Discontinued cholecalciferol (vitamin D3) 125 mcg (5,000 unit) capsule 125 mcg PO DAILY Qty: 30 0RF polyethylene glycol 3350 [Miralax] 17 gram powder in packet 17 g PO DAILY Qty: 14 0RF Rx Instructions: Mix each packet with 8oz of water, Crystal light, or Gatorade zero, or Propel and do 7 packets on 08/18/23 and another 7 packets on 08/19/23 Discharge Orders: Discharge Order (Routine); Ordered 08/21/23 Ordered By: Andrea Souza Activity on Discharge: No heavy lifting Stand Alone Forms: Patient Portal Discharge page Care Plan Goals: weight loss Health Concerns: obesity Plan of Treatment: No tub baths, sex or returning to work until discussed at first post op appointment. No exercise, alcohol, tobacco or illegal drug use. Continue to use incentive spirometer hourly while awake. Walk in home for 5- 10 minutes every 2 hours during the first week. Follow all instructions in the bariatric handbook and call with any questions.Discharge Instructions 1. Please call your doctor or come back to the emergency room should any new symptoms arise. 2. You will receive a courtesy call from [facility] 24-48 hours after discharge. 3. Activity: abstain from alcohol, practice limited stair climbing, no bending, no driving, no exercise, no illicit substances, no lifting, no sex, no tub bath, no work. 4. Diet: continue as discussed with Dr. Souza. 5. Dressing Change/Wound Care: Your incision is covered by clear bandages and guaze underneath. If the area is tender, you may apply an ice pack for short intervals (no more than 20 minutes on, followed by at least 20 minutes off). Do not apply heat. Do not use creams, lotions, or topical antibiotics unless instructed to do so by your surgeon. These can cause infection or allergic reaction. 6. Call your doctor if: - Your temperature exceeds 101.5 F - You experience excessive pain or swelling - You have an unexpected reaction to medication - You have excessive bleeding - You experience continued vomiting/nausea - Your incision begins to separate - Your incision shows signs of infection such as increased redness, swelling, excessive pain, heat, or drainage (light blood or clear fluid is normal) 7. General instructions: No lifting greater than 5 lbs for 1 week and not more than 20lbs the next 3?weeks. No driving until seen at the office in 5-7 days after surgery. If you do not move your bowels in the next 2 days, please tell?Dr. Souza. Please walk around your home every hour or two to prevent blood clots from forming in your legs. You do not need to wake from sleeping to walk. Please sleep in a bed or couch to prevent kinking at the hips and knees. Please take your incentive spirometer (your lung aerodynamics teacher) home with you and use it for the next few days to prevent pneumonia. You may shower, no hot tubs, baths or swimming pools.?Please follow the post op diet instructions you are?given by Dr Souza? and text me daily at 5-6pm for an update.?If you have any issues or concerns or questions please communicate this to him via text.? The Celebrate shakes have all of the bariatric vitamins you need if you consume these shakes. If you are drinking other protein shakes, you will need to purchase the Celebrate multivitamins and calcium that are available in the hospital gift shop on the first floor of the main hospital.??Do not take anything without first discussing with Dr Souza. Please make sure you are consuming at least 40 ounces of fluids per day starting the?day AFTER your discharge from the hospital. Always drink 1-2 ml per minute using the 5ml?syringe. If you drink faster you may experience?bloating,?gas pain, burping, nausea or heartburn. In that case please slow down your pace and use the syringe to?understand better the?proper?pace and volume of drinking. Do not hesitate to contact the office with any questions at . The patient's medical history has been reviewed and they are considered low risk for post op DVT and therefore DVT prophylaxis is not considered necessary. Travel after surgery was reviewed. The patient has not disclosed any travel plans during the first 30 days after surgery and they have been advised that within the first 30 days after surgery any bus, plane, train or car travel over 2 hours in duration is contraindicated due to the possibility of developing blood clots from immobility. Any travel, needs to include periods of ambulation of 10 minutes in duration every 2 hours.? The patient was instructed to discuss any plans for travel during this period with their bariatric surgeon. Assessment: stable s/p laparoscopic sleeve gastrectomy
[2023-08-20] MEDS: HYDROmorphone HCl 0.5 MG/0.5 ML SYRINGE 0.25 MG IVPUSH ×2 (12:38→20:19)
--- NOTE | 2023-08-20 12:53 | PHA.MEDREC ---
Pharmacy Consult ? Medication Reconciliation Pharmacy has reviewed the medication reconciliation completed by nursing.
--- NOTE | 2023-08-20 15:06 | PC.NURSE ---
Pt ambulated to the BR with assist voiding . pt instructed in use of incentive spirometer . and lap sites with dressing mid site small amount of drainage binder in use . routine post op care
[2023-08-20] MEDS: ceFAZolin Sodium/Dextrose,Iso 2 GM/50 ML PIGGYBACK IV (15:18)
[2023-08-20] MEDS: Acetaminophen 1,000 MG/100 ML PIGGYBACK 16.7 MG IV ×2 (17:00→23:16)
[2023-08-20] MEDS: Cyclobenzaprine HCl 10 MG TABLET PO (18:16)
--- NOTE | 2023-08-20 18:24 | PC.NURSE ---
Spoke with phlebotomy they will be up to draw labs
[2023-08-20 19:31] LABS: Hematocrit 35.8 % (37.0-47.0); Hemoglobin 12.6 g/dl (12.0-16.0)
[2023-08-20 19:39] LABS: Anion Gap 14 (12-20); Blood Urea Nitrogen 12 mg/dL (9-16); Carbon Dioxide 20 mmol/L (22-29); Chloride 104 mmol/L (96-108); Creatinine Clr Calc Pharmacy 106.5; Estimated Glomerular Filt Rate > 60; Glucose Random 143 mg/dL (60-115); Potassium 4.3 mmol/L (3.3-5.1); Sodium 134 mmol/L (135-145)
[2023-08-20] MEDS: Famotidine/PF 20 MG/2 ML VIAL IVPUSH (20:19)
[2023-08-20] MEDS: 0.9 % Sodium Chloride Flush 3 ML SYRINGE IVFLUSH (20:20)
[2023-08-21 00:01] VITALS: BP 120/74; PULSE 84; RESP 16; TEMP 36.4; O2SAT 93
[2023-08-21 04:00] VITALS: BP 139/72; PULSE 90; RESP 16; TEMP 36.3; O2SAT 95
[2023-08-21] MEDS: HYDROmorphone HCl 0.5 MG/0.5 ML SYRINGE 0.25 MG IVPUSH ×2 (04:25→08:02)
[2023-08-21] MEDS: Acetaminophen 1,000 MG/100 ML PIGGYBACK 16.7 MG IV (05:31)
[2023-08-21 06:05] LABS: MANUAL DIFF FLAG NO
[2023-08-21 06:16] LABS: Basophils Percent Auto 0.1 % (0-2); Hematocrit 34.7 % (37.0-47.0); Hemoglobin 12.2 g/dl (12.0-16.0); Imm Gran Abs Auto 0.06 X10*3/uL (0.00-0.03); Imm Gran Pct Auto 0.6 % (0.0-0.4); Lymphocytes Absolute Auto 1.4 X10*3/uL (1.2-4.9); Lymphocytes Percent Auto 13.4 % (20-40); Mean Corpuscular HGB Conc 35.2 g/dl (31.0-35.0); Mean Corpuscular Hemoglobin 30.1 pg (27.0-33.0); Mean Corpuscular Volume 85.7 fL (80.0-98.0); Monocytes Absolute Auto 0.5 X10*3/uL (0.1-1.2); Neutrophils Absolute Auto 8.4 x10*3/uL (2.0-8.3); Neutrophils Percent Auto 80.9 % (45-73); Platelet Count 332 X10*3/uL (160-400); Red Blood Count 4.05 X10*6/uL (4.20-5.50); Red Cell Distribution Width 12.1 % (11.0-16.0); White Blood Count 10.4 X10*3/uL (4.8-10.8)
[2023-08-21 06:25] LABS: Anion Gap 13 (12-20); Blood Urea Nitrogen 9 mg/dL (9-16); Calcium 9.1 mg/dL (8.4-10.2); Carbon Dioxide 22 mmol/L (22-29); Chloride 106 mmol/L (96-108); Creatinine Clr Calc Pharmacy 113.6; Estimated Glomerular Filt Rate > 60; Glucose Random 107 mg/dL (60-115); Sodium 137 mmol/L (135-145)
[2023-08-21 07:09] VITALS: BP 146/79; PULSE 75; RESP 16; TEMP 36.7; O2SAT 95
--- NOTE | 2023-08-21 07:25 | HO.POSTANES ---
Post Anesthesia Evaluation Post Anesthesia Evaluation Date of Service: 08/21/23 Vital Signs: Vital Signs Temp Pulse Resp BP Pulse Ox O2 Del Method 08/21/23 07:09 98.1 F 75 16 146/79 H 95 Room Air 08/21/23 04:00 97.4 F 90 16 139/72 95 Room Air 08/21/23 00:01 97.6 F 84 16 120/74 93 Room Air Anesthesia: General Endotracheal-GETA Mental Status: Awake Pain Control: Satisfactory (Uncomfortable) Nausea/Vomiting: None Hydration: Adequate Anesthesia-Related Issues: No Anes. Related Issues
[2023-08-21] MEDS: Escitalopram Oxalate 20 MG TABLET PO (08:02)
[2023-08-21] MEDS: Famotidine/PF 20 MG/2 ML VIAL IVPUSH (08:02)
[2023-08-21] MEDS: buPROPion HCl XL 300 MG TAB.ER.24H PO (08:02)
--- NOTE | 2023-08-21 09:03 | MHC.CM.PN ---
pt dcd home no servies
== END 2023-08-21 10:53 | disposition home or self-care (01) | DRG 403 ==
LOC: HO.SSSA 07:15 → HO.S3 12:33
PROVIDERS: Nurse Practitioner; Physician Assistant Surgical; Admitting Provider Surgery; Visit Provider Surgery
PROC: 0DB64Z3 Excision of Stomach, Percutaneous Endoscopic Approach, Vertical (ICD-10-PCS; CPT 43845; principal; 2023-08-20 10:30)
DX: E66.01 Morbid (severe) obesity due to excess calories (principal); K76.0 Fatty (change of) liver, not elsewhere classified; K21.9 Gastro-esophageal reflux disease without esophagitis; F32.A Depression, unspecified; Z68.36 Body mass index [BMI] 36.0-36.9, adult; F41.9 Anxiety disorder, unspecified; J45.909 Unspecified asthma, uncomplicated; E78.5 Hyperlipidemia, unspecified; L40.9 Psoriasis, unspecified; Z79.899 Other long term (current) drug therapy
CPT/HCPCS: 36415; 80048; 81025; 85014; 85018; 85025; 86850; 86900; 86901; 88304; 88305; 88307; 88342; A4649; C9088; C9145; J0131; J0690; J1100; J1170; J2250; J2371; J2405; J2704; J2795; J3010; J7120

== ENCOUNTER → 2023-08-20 07:06 | Outpatient (BNV) | payer BC, SELFPAY | PROVIDERS: Admitting Provider Surgery; Visit Provider Surgery | DX: E66.01 Morbid (severe) obesity due to excess calories (principal); Z68.36 Body mass index [BMI] 36.0-36.9, adult; Z90.3 Acquired absence of stomach [part of]; Z98.84 Bariatric surgery status | CPT/HCPCS: 43659; 43775; 99024; 99499 ==

== ENCOUNTER 2023-08-25 10:21 | Outpatient (AMB) | payer BC, SELFPAY ==
--- NOTE | 2023-08-25 10:51 | MHC.OFFVISWM ---
Intake VS Expanded 08/25/23 11:02 BP 108/69 Blood Pressure Location Rt brachial Blood Pressure Position Sitting Pulse 94 Pulse Source Pulse Oximeter Temp 97.2 F Temperature Source Temporal Artery Scan Pulse Oximetry 95 Oxygen Delivery Method Room Air Height 5 ft 3 in Weight 195 lb 12.8 oz BMI 34.7 Body Fat % 41.1 Body Fat Mass 80.4 Fat Free Mass 115.4 Visceral Fat Rating 9.0 Body Water % 42.2 Body Water Mass 82.6 Muscle Mass/Score 109.6 Basal Metabolic Rate/Score 1,618 Intake Visit Reasons: (OV) PO LSG 08/20/23 Allergies No Known Allergies Allergy (Verified 08/20/23 07:21) HPI HPI Comments History of Present Illness Details Pleasant 33-year-old female returns to the office today in follow-up. She is 5 days status post sleeve gastrectomy performed on 08/20/[address] Souza. She is tolerating 3 celebrate 4 in 1 shakes with 1 scoop each and 40-45 oz of total fluids per day. Positive bowel movement no significant abdominal pain. [facility] Medical History Back pain Crohn's disease in remission Fatty liver Kidney stone Endometriosis Psoriasis Hyperlipidemia Asthma ADHD GERD (gastroesophageal reflux disease) Anxiety Depression Morbid obesity Surgical History History of carpal tunnel repair Hx of colonoscopy Hx of wisdom tooth extraction Hx of ovarian cystectomy Family History Mother Obesity Father Hypertension Asthma Daughter No problems noted. Social History Household Members: Spouse Housing: House Are you a primary patient care specialist to a significant other at home: No Do you presently have visiting nurse or other home services: No Patient Tobacco Use Status: Former Tobacco user Second Hand Smoke Exposure: No Physical Exam Vital Signs: Last Vital Signs Temp 97.2 F 08/25/23 11:02 Pulse 94 08/25/23 11:02 BP 108/69 08/25/23 11:02 Pulse Ox 95 08/25/23 11:02 Oxygen Delivery Method Room Air 08/25/23 11:02 BMI result Body Mass Index 34.7 GI Inspection: Yes incision (c/d/i) Assessment & Plan Assessment & Plan (1) S/P laparoscopic sleeve gastrectomy: Code(s): Z98.84 - Bariatric surgery status Plan: POD 5 s/p LSG on 08/20/[address] Souza Weight loss prior to surgery was 24 pounds or 10.4 % TBWL. Original weight on 06/26/2023 was 229.4 pounds and op weight was 205.4 pounds. Be sure to text Dr Souza exactly 1 week after surgery your weight from your home scale so he can adjust your meal plan. Continue meal plan until f/u alfonso Gillespie in 2 weeks May shower, no submersion in bath for another week Continue abdominal binder with activity and exercise for the next 2 weeks. Exercise prior to surgery was treadmill, may resume No abdominal exercises for 6 weeks post operatively Will be emailed link to post op video for review Reminded of the pace of drinking, 2 mL per minute, 1 oz/15 min. Coding Level of Care Code Global (02750) Diagnoses S/P laparoscopic sleeve gastrectomy Z98.84
[2023-08-25 11:02] VITALS: BP 108/69; PULSE 94; TEMP 36.2; O2SAT 95; BMI 34.7
== END 2023-08-25 12:22 | disposition home or self-care (01) ==
PROVIDERS: Visit Provider Physician Assistant Surgical
DX: Z98.84 Bariatric surgery status (principal)
CPT/HCPCS: 99024

== ENCOUNTER → 2023-08-25 10:21 | Outpatient (BNVA) | payer BC, SELFPAY | PROVIDERS: Visit Provider Physician Assistant Surgical ==

== ENCOUNTER 2023-09-28 13:38 | Outpatient (AMB) | payer BC, SELFPAY ==
--- NOTE | 2023-09-28 11:29 | MHC.OFFVISWM ---
VS Expanded 09/28/23 11:30 Height 5 ft 3 in Weight 181 lb 9.6 oz BMI 32.2 Body Fat % 39.3 Body Fat Mass 71.4 Fat Free Mass 110.2 Visceral Fat Rating 14 Body Water % 41.6 Body Water Mass 75.6 Muscle Mass/Score 103.6 Basal Metabolic Rate/Score 1,439 Intake Visit Reasons: (tv) PO lsg 08/20/23 Emergency Medicine Medical Director Required: No Allergies No Known Allergies Allergy (Verified 08/20/23 07:21) Medication List - Last Reconciled 09/28/23 by EDUARDO Pena albuterol sulfate 90 mcg/actuation 2 puffs inhalation Q6H PRN atomoxetine 25 mg PO DAILY bupropion HCl XL 300 mg PO DAILY cetirizine (Zyrtec) 10 mg PO DAILY PRN cyclobenzaprine 10 mg PO TID PRN escitalopram oxalate (Lexapro) 20 mg PO DAILY halobetasol propionate 0.05% 1 appl topical BID PRN hydrocortisone 2.5% 1 appl topical BID PRN ondansetron 4 mg PO Q12H pantoprazole 40 mg PO DAILY sucralfate 10 mL PO BID HPI Comments Details: This?a?33?yo female who is s/p LSG without hiatal hernia repair on?08/20/[address] Souza. Presents for 1 month post op visit. Weight today is 181.6 pounds, with a BMI of 32.2. There has been a 47.8 pound weight loss,(initial weight 229.4 pounds) since starting the program on 06/26/2023 reflecting a 20.8 % total body weight loss and a weight loss of 23.8 pounds since surgery (operative weight 205.4 pounds) reflecting a 11.5 % TBWL since surgery. No complaints of nausea, emesis, abdominal pain or reflux. Reports infrequent but normal bowel movements every 1-2 days and uses stool softeners regularly. Taking bariatric fusion mvi She states she is doing well. She did have one episode of BRBPR painless and resolved without recurrence. Present meal plan includes: Fairlife 30 gm 5 oz diluted w 3 oz almond milk 3 x per day 45 gm protein celebrate bar at night Drinking 16 oz on top of the shakes. ? Exercise routine includes: treadmill 450 emilia 5 x per week walking dog PENDING SALE TO [facility] Medical History Nausea Abnormal EKG Back pain Crohn's disease in remission Fatty liver Kidney stone Endometriosis Psoriasis Hyperlipidemia Asthma ADHD GERD (gastroesophageal reflux disease) Anxiety Depression Morbid obesity Surgical History History of carpal tunnel repair Hx of colonoscopy Hx of wisdom tooth extraction Hx of ovarian cystectomy Family History Mother Obesity Father Hypertension Asthma Daughter No problems noted. Social History Household Members: Spouse Housing: House Are you a primary point of care specialist to a significant other at home: No Do you presently have visiting nurse or other home services: No Patient Tobacco Use Status: Former Tobacco user Second Hand Smoke Exposure: No Telehealth Telehealth Telehealth Platform: Telephone Location of provider rendering services: practice address Location of patient: other Patient Identification confirmed using: Name, : Yes Telehealth method: voice only Patient verbally consented to treatment: Yes Patient verbally consented to billing insurance company: Yes Patient informed of any privacy concerns related to visit: Yes Minutes spent on Phone/Video with Pt.: 20 Assessment & Plan Assessment & Plan (1) S/P laparoscopic sleeve gastrectomy: Code(s): Z98.84 - Bariatric surgery status Category: Surgical Plan: Satisfied with current meal plan. Continue as such. She will continue exercise regimen. Follow-up in the office in 3-4 weeks.
[2023-09-28 11:30] VITALS: BMI 32.2
== END 2023-09-28 13:41 | disposition home or self-care (01) ==
LOC: HO.HBS 13:38
PROVIDERS: Visit Provider Physician Assistant Surgical
DX: Z98.84 Bariatric surgery status (principal)
CPT/HCPCS: 99024

== ENCOUNTER → 2023-09-28 13:38 | Outpatient (BNVA) | payer BC, SELFPAY | PROVIDERS: Visit Provider Physician Assistant Surgical ==